=== PATIENT | female | born 1955 | race Asian ===

== ENCOUNTER → 2019-03-27 | Outpatient (REF) | payer MEDICARE ==
[2019-03-27 14:35] LABS: BASO # 0.1 10^3/uL (0.0-0.2); BASO % 1.2 % (0.0-1.0); EOS # 1.2 10^3/uL (0.0-0.50); EOS % 17.6 % (0.0-3.0); HEMATOCRIT 30.6 % (36.0-47.0); HEMOGLOBIN 9.6 g/dl (12.0-15.5); LYMPH # 0.7 10^3/uL (1.5-4.5); LYMPH % 11.2 % (24.0-44.0); MEAN CORPUSCULAR HEMOGLOBIN 28.4 pg (27.0-33.0); MEAN CORPUSCULAR HGB CONC 31.4 g/dl (32.0-36.5); MEAN CORPUSCULAR VOLUME 90.5 fl (80.0-96.0); MONO # 0.5 10^3/uL (0.0-0.8); MONO % 8.3 % (0.0-5.0); NEUTROPHILS % 61.4 % (36.0-66.0); PLATELET COUNT, AUTOMATED 270 10^3/uL (150-450); RED BLOOD COUNT 3.38 10^6/uL (4.00-5.40); WHITE BLOOD COUNT 6.5 10^3/uL (4.0-10.0)
== END ==
LOC: M LAB REF 14:25
PROVIDERS: ATTEND Internal Medicine Nephrology
DX: N18.5 Chronic kidney disease, stage 5 (principal); D63.1 Anemia in chronic kidney disease

== ENCOUNTER → 2019-04-01 | Outpatient (CLI) | payer MEDICARE ==
--- NOTE | 2019-04-01 10:04 | REP ---
Chest x-ray: Two views. History: Cough. Kidney transplant. Findings: There is moderate cardiomegaly. Cardiothoracic ratio is measured at 58.0%. The thoracic aorta is calcific and tortuous. Pulmonary vasculature is not increased. Pleural angles are sharp. There is no evidence of pulmonary edema or pleural effusion. No infiltrate is seen. Impression: Moderate cardiomegaly. Otherwise no acute disease. Electronically Signed by Robert An MD 04/01/2019 09:55 A
== END ==
LOC: M SMT 09:39
PROVIDERS: ATTEND Internal Medicine Nephrology
DX: I51.7 Cardiomegaly (principal); Z94.0 Kidney transplant status

== ENCOUNTER → 2019-04-29 | Outpatient (REF) | payer MEDICARE ==
[~2019-04-29] MED LIST: ACET-683 PO; CYCL25CA6 PO; FURO40TA2 PO; METO1TAB87 PO; MYCO250C PO; NORV5TAB PO; TESS100C PO; ULOR80TA PO; ZANTTAB PO
[2019-04-29 14:03] LABS: PERCENT SATURATION 58.6 % (13.2-45.0)
== END ==
LOC: M LAB REF 13:06
PROVIDERS: ATTEND Internal Medicine Nephrology
DX: Z94.0 Kidney transplant status (principal); N18.5 Chronic kidney disease, stage 5; D50.9 Iron deficiency anemia, unspecified

== ENCOUNTER 2019-04-30 10:09 | Outpatient (CLI) | payer MEDICARE ==
[~2019-04-30] VITALS: Ht 144.8 cm; Wt 49.3 kg
[2019-04-30 10:15] VITALS: BP 151/67
[2019-04-30] MEDS ORDERED: CYCL25CA6 PO (11:06)
[2019-04-30] MEDS ORDERED: ACET-683 PO (11:06)
[2019-04-30] MEDS ORDERED: ZANTTAB PO (11:06)
[2019-04-30] MEDS ORDERED: METO1TAB87 PO (11:06)
[2019-04-30] MEDS ORDERED: ULOR80TA PO (11:06)
[2019-04-30] MEDS ORDERED: FURO40TA2 PO (11:06)
[2019-04-30] MEDS ORDERED: TESS100C PO (11:06)
[2019-04-30] MEDS ORDERED: MYCO250C PO (11:06)
[2019-04-30] MEDS ORDERED: NORV5TAB PO (11:06)
[2019-04-30 15:25] VITALS: BP 148/73
== END 2019-04-30 15:25 | disposition home or self-care (01) ==
LOC: M INFU 10:09
PROVIDERS: ATTEND Internal Medicine Nephrology
DX: N18.5 Chronic kidney disease, stage 5 (principal); D63.1 Anemia in chronic kidney disease
CPT/HCPCS: 36430; P9016

== ENCOUNTER → 2019-07-10 | Outpatient (REF) | payer MEDICARE, MEDICAID ==
[~2019-07-10] MED LIST changes: +FEBU40TA4 PO; +MUCI600T31 PO; +PRED10PA PO; +ZANT150T40 PO; -ZANTTAB PO
== END ==
LOC: M LAB REF 13:03
PROVIDERS: ATTEND Internal Medicine Nephrology
DX: Z94.0 Kidney transplant status (principal)

== ENCOUNTER 2019-07-13 06:45 | Outpatient (CLI) | payer MEDICARE, MEDICAID ==
[~2019-07-13] VITALS: Ht 149.9 cm; Wt 50.1 kg
[2019-07-13] VITALS (9 sets, daily range): BP systolic 122–151; BP diastolic 59–67
[~2019-07-13 06:45] MED LIST changes: -MUCI600T31 PO
== END 2019-07-13 14:00 | disposition home or self-care (01) ==
LOC: M INFU 06:45
PROVIDERS: ATTEND Internal Medicine Nephrology
DX: N18.9 Chronic kidney disease, unspecified (principal); D63.1 Anemia in chronic kidney disease
CPT/HCPCS: 36415; 36430; 86850; 86900; 86901; 86920; P9016

== ENCOUNTER → 2019-07-20 | Outpatient (REF) | payer MEDICARE, MEDICAID ==
[~2019-07-20] MED LIST changes: +MUCI600T31 PO
[2019-07-20 14:39] LABS: HEPATITIS B CORE ANTIBODY IGM NEGATIVE (NEGATIVE); HEPATITIS B SURFACE ANTIBODY POSITIVE (POSITIVE); HEPATITIS B SURFACE ANTIGEN NEGATIVE (NEGATIVE)
== END ==
LOC: M LAB REF 12:59
PROVIDERS: ATTEND Internal Medicine Nephrology
DX: N18.6 End stage renal disease (principal); E78.49 Other hyperlipidemia; I12.0 Hypertensive chronic kidney disease with stage 5 chronic kidney disease or end stage renal disease; D64.9 Anemia, unspecified

== ENCOUNTER 2019-07-21 05:46 | Day surgery (SDC) | payer MEDICARE, MEDICAID ==
[~2019-07-21] VITALS: Ht 149.9 cm; Wt 49.8 kg
[~2019-07-21 05:46] MED LIST changes: -MUCI600T31 PO
[2019-07-21] MEDS ORDERED: MUCI600T31 PO (06:28)
[2019-07-21] MEDS ORDERED: D5W/0.2% SODIUM CHLORIDE 1,000 ML IV ONE (06:45)
[2019-07-21] MEDS ORDERED: BUPIVACAINE HCL 0.5% 10 ML VIAL As Ordered ONE (06:53)
[2019-07-21] MEDS ORDERED: HEPARIN SOD (PORCINE) 5000 UNITS/ML VIAL As Ordered ONE (06:53)
[2019-07-21] MEDS ORDERED: LIDOCAINE 2% MDV 20 ML VIAL As Ordered ONE (06:54)
[2019-07-21] MEDS ORDERED: LIDOCAINE 2% INJ 100 MG/5 ML SDV (FOR ANES.) As Ordered ONE (07:05)
[2019-07-21] MEDS ORDERED: ROCURONIUM BROMIDE 50 MG/5 ML VIAL As Ordered ONE (07:06)
[2019-07-21] MEDS ORDERED: PROPOFOL 200 MG/20 ML VIAL As Ordered ONE (07:06)
[2019-07-21] MEDS ORDERED: MIDAZOLAM INJ 2 MG/2 ML VIAL (J2250) As Ordered ONE (07:07)
[2019-07-21] MEDS ORDERED: fentaNYL 100 MCG/2 ML INJECTION (J3010) As Ordered ONE (07:07)
[2019-07-21] MEDS ORDERED: dexameTHASONE 4 MG/ML 1ML VIAL (J1100) As Ordered ONE (07:07)
[2019-07-21] MEDS ORDERED: ONDANSETRON 4MG/2ML VIAL (J2405) As Ordered ONE (07:08)
[2019-07-21] MEDS ORDERED: LIDOCAINE 1% MDV 20ML VIAL As Ordered ONE (07:27)
[2019-07-21] MEDS ORDERED: SUGAMMADEX SODIUM 500 MG/5 ML VIAL (BRIDION) As Ordered ONE (08:14)
[2019-07-21] MEDS ORDERED: ONDANSETRON 4MG/2ML VIAL (J2405) IV PRN ×2 (08:45→10:00)
[2019-07-21] MEDS ORDERED: HYDROMORPHONE HCL 0.5 MG/ 0.5 ML SYRINGE (J1170 PER 1) IV PRN ×2 (08:45→10:00)
[2019-07-21] MEDS ORDERED: fentaNYL 100 MCG/2 ML INJECTION (J3010) IV PRN ×2 (08:45→10:00)
[2019-07-21] MEDS ORDERED: PERCOCET 5MG/325MG TAB PO PRN ×2 (08:45→10:00)
--- NOTE | 2019-07-21 09:09 | ECGEPIP ---
[facility] Test Date: 2019-07-21 Pat Name: MILENA TRAYLOR Department: Room: - Gender: Female Contracts Administrator: VANNESSA : 1955 Requested By: TIFFANIE Han Order Number: [id number] Reading MD: Travon Ray Measurements Intervals [place] Rate: 71 P: 27 [place]: 152 QRS: 12 QRSD: 78 T: 62 QT: 367 QTc: 399 Interpretive Statements SINUS RHYTHM Comparison tracing not on file Electronically Signed on 07-21-2019 9:08:57 EDT by Travon Ray
--- NOTE | 2019-07-21 09:09 | ROOPDOC ---
[facility] Report Of Operation Report of Operation DATE OF SURGERY: 07/21/2019 PREOPERATIVE DIAGNOSES: Chronic renal insufficiency nearing end-stage renal disease requiring renal replacement therapy POSTOPERATIVE DIAGNOSES: Chronic renal insufficiency nearing end-stage renal disease requiring renal replacement therapy. PROCEDURE: Laparoscopic peritoneal exploration SURGEON: Dr. Madelin Morales MD WIRE ROPE FABRICATION SUPERVISOR: None INDICATION: Patient is a 63-year-old female with chronic renal insufficiency nearing end-stage renal disease who has previously required hemodialysis through a left arm autogenous arteriovenous fistula the patient had received a living- related renal transplant from her brother approximate 28 years ago and she has now approaching the need for recurrent renal replacement therapy. Patient wishes to undergo placement of a peritoneal dialysis catheter and proceed with peritoneal dialysis as her primary form of renal replacement therapy. Patient has had previous hysterectomy and renal transplantation abdominal surgeries. Patient had a left autogenous radiocephalic artery venous fistula which was re moved after her renal transplantation. Patient was also offered the option of undergoing creation of a and autogenous arteriovenous fistula which she does not wish to proceed with at this time. The procedure was described and explained to the patient in detail including drawing of pictures demonstrating the procedure and the anatomy. Risks, benefits and alternative treatment options were discussed with the patient and her daughter. Benefits included but were not limited to dialysis through a catheter in the abdomen and no need for hemodialysis. Alternative treatment options included but were not limited to no intervention with continued conservative management. Risks included but were not limited to infection, bleeding, intra-abdominal organ injury necessitating exploratory laparotomy with repair, possible need for further open surgical intervention, inability to place the peritoneal dialysis catheter secondary to adhesions, failure of peritoneal dialysis catheter to function requiring revision and/or removal, failure of peritoneal dialysis catheter to provide adequate dialysis requiring revision and/or removal of catheter, allergic and/or adverse reaction to the prepping and draping materials allergic and/or adverse reaction to the anesthesia, nerve injury, scarring, bruising, pain, cerebrovascular accident, myocardial infarction, pulmonary embolus, deep venous thrombosis, poor outcome and/or results, poor patient's satisfaction, loss of limb and loss of life. Risks of not performing the procedure included but were not limited to renal replacement therapy via other forms such as hemodialysis, requirement for a tunneled central venous catheter and/or arteriovenous fistula and The patient's questions were answered as well as all of her daughter's questions. The patient voices understanding of these risks benefits and alternative treatment options. The patient signed the written consent in the preoperative holding area prior to the surgery after all of her questions were answered as well as all of her daughter's questions. ANESTHESIA: Gen. endotracheal. IVF: 600 ESTIMATED BLOOD LOSS: 5 mL. HEPARIN: None PROTAMINE: None COMPLICATIONS: None. DRAINS: None SPECIMENS: None IMPLANTS: None FINDINGS: The intraperitoneal space was obliterated by adhesions with no open cavity for placement of a peritoneal dialysis catheter. DESCRIPTION OF PROCEDURE: Patient was taken to operating room, placed supine on the operating room table and the patient was prepped and draped in a standard surgical fashion. The surgical timeout was performed by myself and all team members in the room confirming the correct patient, laterality and procedure. A stab incision was made in the left upper quadrant after anesthetizing the overlying skin with 2 % lidocaine mixed with 0.5% Marcaine. A 5 mm port was then inserted through the stab incision into the peritoneal cavity with the laparoscope within the port using direct laparoscopic visualization to place the port within the peritoneal cavity. The abdominal cavity was insufflated with CO2. The laparoscope was inserted through the 5 mm port showing the intra- abdominal cavity to be full of adhesions. The peritoneal cavity was explored and the only open space was in the right upper quadrant near the liver which was easily visualized and noted to be normal. There were massive adhesions in the bilateral lower quadrants and no open space for placement of a peritoneal dialysis catheter. The was removed and the puncture wound were closed using 4-0 Monocryl suture in inverted interrupted fashion. Steri-Strips and dressings were applied. All instrument, sponge and needle counts were correct at the end of the case. There were no complications. Dr. Morales was present for and directed the entire case. Patient was transferred to the recovery room awake, alert, extubated and in stable condition. The results of the procedure were explained and described to the patient in the postoperative recovery area with all of her questions being answered. The results of the procedure were explained and de scribed to the patient's daughter in the post surgical waiting area with all of her questions being answered. CONCLUSION: Patient underwent attempted laparoscopic peritoneal dialysis catheter placement which was unsuccessful due to massive amount of adhesions preventing placement of the catheter as well as the likelihood that the catheter would be nonfunctional and in able to be used for peritoneal dialysis. PLAN: Patient will require autogenous arteriovenous fistula creation for renal replacement therapy via hemodialysis. Patient will undergo a vein mapping and this will be scheduled in the near future. Alexander Morales MD Jul 21, 2019 09:09
[2019-07-21 11:00] VITALS: BP 115/59
--- NOTE | 2019-07-21 15:35 | REP ---
Upper extremity vein mapping: Right upper extremity: Basilic size mm Cephalic size mm Upper humerus 2.8 1.2 Lower humerus 2.8 1.6 Upper forearm 1.7 0.9 Lower forearm/wrist. 1.1 1.1 Median cubital 1.9 -- Arterial PSV Waveform Size mm Axillary 92 triphasic 5.1 Brachial 82 triphasic 4.7 Radial 62 triphasic 2.4 Ulnar 50 triphasic 1.4 Upper extremity vein mapping: Left upper extremity: Basilic size mm Cephalic size mm Upper humerus 4.4 of 2.7 Lower humerus 4.4 of 2.5 Upper forearm 1.5 1.6 Lower forearm/wrist. 1.8 1.7 Median cubital 2.6 -- Arterial PSV Waveform Size mm Axillary 92 triphasic 5.2 Brachial 132 triphasic 4.1 Radial 60 triphasic 1.9 Ulnar 68 biphasic 1.1 The left radial artery is tortuous at the wrist. The left basilic vein travels to the lateral side of the wrist near the tortuous radial artery. This may be from a previous AVF. Electronically Signed by Bob Frazier MD 07/21/2019 03:27 P
== END 2019-07-21 12:55 | disposition home or self-care (01) ==
LOC: M SDC 05:46
PROVIDERS: ATTEND Surgery Vascular Surgery
DX: N18.6 End stage renal disease (principal); K66.0 Peritoneal adhesions (postprocedural) (postinfection); I12.0 Hypertensive chronic kidney disease with stage 5 chronic kidney disease or end stage renal disease; D63.1 Anemia in chronic kidney disease; M1A.30X0 Chronic gout due to renal impairment, unspecified site, without tophus (tophi); E78.5 Hyperlipidemia, unspecified; K21.9 Gastro-esophageal reflux disease without esophagitis; B00.1 Herpesviral vesicular dermatitis; R06.02 Shortness of breath; R05 Cough; Z91.010 Allergy to peanuts; Z79.899 Other long term (current) drug therapy; Z94.0 Kidney transplant status; Z90.710 Acquired absence of both cervix and uterus
CPT/HCPCS: 36415; 49320; 84132; 93005; G0365; J1100; J2250; J2405; J3010

== ENCOUNTER → 2019-08-06 | Outpatient (REF) | payer MEDICARE, MEDICAID ==
[~2019-08-06] MED LIST changes: +CLAR10CA3 PO; +MUCI600T31 PO
== END ==
LOC: M LAB REF 13:13
PROVIDERS: ATTEND Internal Medicine Nephrology
DX: D64.9 Anemia, unspecified (principal)

== ENCOUNTER 2019-08-07 12:15 | Outpatient (CLI) | payer MEDICARE, MEDICAID ==
[~2019-08-07] VITALS: Ht 149.9 cm; Wt 50.1 kg
[2019-08-07] VITALS (10 sets, daily range): BP systolic 136–149; BP diastolic 60–74
[~2019-08-07 12:15] MED LIST changes: -CLAR10CA3 PO
[2019-08-07] MEDS ORDERED: CLAR10CA3 PO ×2 (12:45)
== END 2019-08-07 17:25 | disposition home or self-care (01) ==
LOC: M INFU 12:15
PROVIDERS: ATTEND Internal Medicine Nephrology
DX: N18.9 Chronic kidney disease, unspecified (principal); D63.1 Anemia in chronic kidney disease
CPT/HCPCS: 36430; P9016

== ENCOUNTER 2019-08-30 13:34 | Inpatient (IN) | payer MEDICARE, MEDICAID ==
[~2019-08-30] VITALS: Ht 149.9 cm; Wt 46.9 kg
[~2019-08-30 13:34] MED LIST changes: +CLAR10CA3 PO
[2019-08-30] MEDS ORDERED: ACETAMINOPHEN 325 MG TAB PO ONE (14:00)
[2019-08-30] MEDS ORDERED: ALLO100T PO (14:10)
[2019-08-30 14:37] LABS: INFLUENZA A AMPLIFICATION NEGATIVE (NEGATIVE); INFLUENZA B AMPLIFICATION NEGATIVE (NEGATIVE)
[2019-08-30] MEDS ORDERED: ALBUTEROL SULFATE 2.5 MG/0.5 ML INH NEB SOLN NEB PRN (14:45)
[2019-08-30 15:09] LABS: BASO # 0.1 10^3/uL (0.0-0.2); BASO % 0.3 % (0.0-1.0); EOS # 0.2 10^3/uL (0.0-0.5); EOS % 0.8 % (0.0-3.0); HEMATOCRIT 24.6 % (36.0-47.0); HEMOGLOBIN 8.3 g/dl (12.0-15.5); LYMPH # 0.3 10^3/uL (1.5-5.0); LYMPH % 1.8 % (24.0-44.0); MEAN CORPUSCULAR HEMOGLOBIN 30.5 pg (27.0-33.0); MEAN CORPUSCULAR HGB CONC 33.7 g/dl (32.0-36.5); MEAN CORPUSCULAR VOLUME 90.4 fl (80.0-96.0); MONO % 5.4 % (0.0-5.0); NEUTROPHILS # 17.1 10^3/uL (1.5-8.5); NEUTROPHILS % 90.7 % (36.0-66.0); PLATELET COUNT, AUTOMATED 316 10^3/uL (150-450); RED BLOOD COUNT 2.72 10^6/uL (4.00-5.40); WHITE BLOOD COUNT 18.9 10^3/uL (4.0-10.0)
--- NOTE | 2019-08-30 15:13 | REP ---
CHEST, TWO VIEWS: Two views of the chest are performed and compared to prior study of 04/01/2019. There is cardiomegaly with vascular congestion. There appears to be diffuse interstitial edema. There is focal patchy infiltrate in the right lung base. There is calcification and tortuosity of the thoracic aorta. There are degenerative changes of the spine. IMPRESSION: Cardiomegaly, vascular congestion, and interstitial edema suggesting CHF. There is more focal infiltrate in the right lower lobe. Cannot exclude right lower lobe pneumonia. Electronically Signed by Bob Sears MD 08/30/2019 04:32 P
[2019-08-30 15:38] LABS: ALBUMIN 2.7 GM/DL (3.2-5.2); ALT/SGPT 30 U/L (12-78); BILIRUBIN,DIRECT 0.3 MG/DL (0.0-0.2); BILIRUBIN,TOTAL 0.5 MG/DL (0.2-1.0); BLOOD UREA NITROGEN 43 MG/DL (7-18); CALCIUM LEVEL 8.2 MG/DL (8.8-10.2); CARBON DIOXIDE LEVEL 14 MEQ/L (21-32); CHLORIDE LEVEL 111 MEQ/L (98-107); CK-MB VALUE MASS < 1.0 NG/ML (<3.6); CPK CREATINE PHOSPHOKINASE 31 U/L (26-192); CREATININE FOR GFR 3.52 MG/DL (0.55-1.30); GLOMERULAR FILTRATION RATE 13.9 (>45); GLUCOSE, FASTING 147 MG/DL (70-100); MB/CK RELATIVE INDEX 3.23 (< OR =4); POTASSIUM SERUM 4.3 MEQ/L (3.5-5.1); SODIUM LEVEL 138 MEQ/L (136-145); TOTAL PROTEIN 6.1 GM/DL (6.4-8.2)
[2019-08-30 15:39] LABS: TROPONIN I < 0.02 NG/ML (< 0.10)
[2019-08-30] MEDS ORDERED: RANI150T14 PO (15:40)
[2019-08-30] MEDS ORDERED: PRED5TA PO (15:40)
[2019-08-30] MEDS ORDERED: FURO40TA2 PO (15:45)
[2019-08-30] MEDS ORDERED: cefTRIAXone SOD 2 GM in D5W MINI-BAG PLUS 50 ML IV ONE (16:15)
[2019-08-30] MEDS ORDERED: FUROSEMIDE 20 MG/2 ML VIAL (J1940) IV ONE (16:30)
[2019-08-30 16:47] LABS: AMORPHOUS SEDIMENT LARGE (NEGATIVE); APPEARANCE, URINE CLOUDY (CLEAR); BACTERIA, URINE AUTO 1+ (NEGATIVE); BILIRUBIN, URINE AUTO NEGATIVE (NEGATIVE); BLOOD, URINE BLOOD 1+ (NEGATIVE); COLOR, URINE YELLOW (YELLOW); GLUCOSE, URINE (UA) AUTO 1+ mg/dL (NEGATIVE); KETONE, URINE AUTO NEGATIVE (NEGATIVE); LEUKOCYTE ESTERASE, URINE AUTO NEGATIVE (NEGATIVE); MUCUS, URINE SMALL (NEGATIVE); NITRITE, URINE AUTO NEGATIVE (NEGATIVE); PROTEIN, URINE AUTO 2+ mg/dL (NEGATIVE); RBC, URINE AUTO 4 /HPF (0-3); SPECIFIC GRAVITY URINE AUTO 1.011 (1.002-1.035); SQUAMOUS EPITHELIAL CELL UR AU 2 /HPF (0-6); UROBILINOGEN, URINE AUTO 0.2 mg/dL (0.0-2.0); WBC, URINE AUTO 4 /HPF (0-3)
[2019-08-30] MEDS ORDERED: ACETAMINOPHEN TAB 650MG DOSE (2X325MG) PO PRN (17:15)
[2019-08-30] MEDS ORDERED: LEVALBUTEROL 1.25 MG/0.5 ML CONCENTRATE NEB INH PRN (17:15)
[2019-08-30] MEDS ORDERED: FAMOTIDINE 20 MG TAB PO PRN (17:30)
--- NOTE | 2019-08-30 17:55 | HPEPDOC ---
General Date of Admission Aug 30, 2019 at 17:14 Date of Service: Aug 30, 2019 Chief Complaint The patient is a 63-year-old female Who presented to the emergency room with complaints of shortness of breath and productive cough. History of Present Illness Patient is a 63-year-old female with a PMHx of ESRD s/p Renal transplant (on immunosuppression), HTN, Gout and GERD who presented to the emergency room with worsening cough and shortness of breath over the last several weeks. Patient reports that she follows with Dr. Stovall on a regular basis. . She was last evaluated by them on 08/06/2019 and followed up with them on 08/07/2019 for 2 units PRBC transfusion for her anemia related to chronic kidney disease. Patient reports that over the last several weeks. Shes been expressing symptoms of an upper respiratory tract infection and has been noting increased weakness, lower energy levels and loss of sleep. . She reports that shes been experiencing worsening shortness of breath as well as a productive cough with white/yellow colored sputum. She denies any blood within the sputum. Patient does report pain around the lower part of her chest and both sides of her chest upon deep cough. Patient has reported subjective chills and fevers at home, however, she has not measured any temperatures. Patient denies nausea, vomiting, abdominal pain, constipation, diarrhea, or urinary discomfort. Patient does report that she urinates without any difficulty. She has reported a 4 pound weight loss over last 1 month and has reported poor appetite. Home Medications Scheduled Allopurinol (Allopurinol) 100 Mg Tablet, 100 MG PO DAILY, (Reported) Amlodipine Besylate (Norvasc) 5 Mg Tablet, 5 MG PO DAILY, (Reported) Cyclosporine, Modified (Cyclosporine Modified) 25 Mg Capsule, 50 MG PO BID, (Reported) Furosemide (Furosemide) 40 Mg Tablet, 40 MG PO DAILY, (Reported) Metoprolol Tartrate (Metoprolol Tartrate) 25 Mg Tablet, 25 MG PO BID, (Reported) Mycophenolate Mofetil (Mycophenolate Mofetil) 250 Mg Capsule, 500 MG PO BID, (Reported) Prednisone (Prednisone) 5 Mg Tablet, 5 MG PO DAILY, (Reported) Scheduled PRN Acetaminophen (Acetaminophen) 500 Mg Tablet, 1,000 MG PO BID PRN for PAIN, (Reported) Ranitidine HCl (Ranitidine HCl) 150 Mg Tablet, 300 MG PO DAILY PRN for HEARTBURN /INDIGESTION, (Reported) Allergies Coded Allergies: latex (Verified Allergy, Intermediate, rash, 07/21/19) Past Medical History Medical History ESRD s/p Renal transplant (on immunosuppression), HTN, Gout and GERD Surgical History Kidney transplant approximately 28 years ago; Hysterectomy with bilateral salpingo-oophorectomy Left arm AV fistula creation and reversal approximately 28 years ago Family History - Mother and father with a history of DM2 Social History - Denies the use of alcohol, tobacco or illicit drugs - Denies recent travel or sick contacts - Lives with daughter and son-in-law - Occupation; 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 There is no wheezing or rhonchi noted - Abdomen: Soft, Non-distended, Non-tender - Extremities: No lower extremity edema, No calf tenderness - Neuro: No focal motor or sensory deficit - Skin: No visible rashes Laboratory Data Labs 24H Laboratory Tests 2 08/30/19 13:59: Influenza Type A (RT-PCR) NEGATIVE, Influenza Type B (RT-PCR) NEGATIVE 08/30/19 14:50: 08/30/19 14:51: Immature Granulocyte % (Auto) 1.0, Neutrophils (%) (Auto) 90.7H, Lymphocytes (%) (Auto) 1.8L, Monocytes (%) (Auto) 5.4H, Eosinophils (%) (Auto) 0.8, Basophils (%) (Auto) 0.3, Neutrophils # (Auto) 17.1H, Lymphocytes # (Auto) 0.3L, Monocytes # (Auto) 1.0H, Eosinophils # (Auto) 0.2, Basophils # (Auto) 0.1, Nucleated Red Blood Cells % (auto) 0.0, Anion Gap 13, Glomerular Filtration Rate 13.9L, Lactic Acid Level 0.9, Calcium Level 8.2L, Total Bilirubin 0.5, Direct Bilirubin 0.3H, Aspartate Amino Transf (AST/SGOT) 18, Alanine Aminotransferase (ALT/SGPT) 30, Alkaline Phosphatase 88, Total Creatine Kinase 31, Creatine Kinase MB < 1.0, Creatine Kinase MB Relative Index 3.23, Troponin I < 0.02, AN-Dpb-P-Type N atriuretic Peptide 896H, Total Protein 6.1L, Albumin 2.7L, Albumin/Globulin Ratio 0.79L 08/30/19 16:26: Urine Color YELLOW, Urine Appearance CLOUDYH, Urine pH 5.0, Urine Specific [place] 1.011, Urine Protein 2+H, Urine Glucose (Auto)(UA) 1+H, Urine Ketones (Auto) NEGATIVE, Urine Blood 1+H, Urine Nitrite NEGATIVE, Urine Bilirubin NEGATIVE, Urine Urobilinogen 0.2, Urine Leukocyte Esterase (Auto) NEGATIVE, Urine WBC (Auto) 4H, Urine RBC (Auto) 4H, Urine Hyaline Casts (Auto) 0, Urine Bacteria (Auto) 1+H, Urine Squamous Epithelial Cells 2, Urine Amorphous Sediment (Auto) LARGEH, Urine Mucus (Auto) SMALL, Urine Sperm (Auto) CBC/BMP Laboratory Tests 08/30/19 14:51 Microbiology Microbiology 08/30/19 Blood Culture, Received Pending 08/30/19 Blood Culture, Received Pending Plan / VTE VTE Prophylaxis Ordered?: Yes Plan Plan Shortness of breath - likely 2/2 multifactorial etiology - Fluid overload - likely 2/2 progression of CKD / ESRD with failure of renal transplant - Patient reports that her symptoms have worsened over the last several days - Auscultation is reveal evidence of crackles bilaterally - BNP noted to be elevated - CXR 08/30: Cardiomegaly, vascular congestion, and interstitial edema suggesting CHF. There is more focal infiltrate in the right lower lobe. Cannot exclude right lower lobe pneumonia. - Will give furosemide 60 IV total - Case has been discussed with nephrology will be on consultation - Pneumonia - possibly 2/2 community acquired pneumonia (coverage for gram negative and atypical organisms) - Patient noted to have a fever in the ER at 101.6F - Leukocytosis noted with neutrophil predominance - Will check blood and sputum cultures, respiratory panel and strep / legionella antigens - Will provide coverage with ceftriaxone and azithromycin Non-anion gap acidosis - Likely secondary to progression of underlying Tala disease - Will start bicarbonate tablets Normocytic anemia - likely 2/2 AOCD from ESRD - Hg appears to be lower than baseline - Will continue to monitor hemoglobin counts and transfuse as needed ESRD - s/p Renal transplant - Patient is currently on immunosuppression. Well continue with her home medications - Patient is scheduled to receive a fistula placement with Dr. Dewitt on 09/10/2019 - Consulted Nephrology; appreciate their input HTN - BP appears well controlled - c/w amlodipine and metoprolol with holidng parameters Gout - c/w Allopurinol GERD - c/w Famotidien DVT prophylaxis - Will start Heparin RAVEN TIPTON MD Aug 30, 2019 17:55
[2019-08-30 18:25] VITALS: BP 114/57
[2019-08-30] MEDS ORDERED: SLF 3 ML SYR IV PRN (18:30)
[2019-08-30] MEDS ORDERED: FUROSEMIDE 40 MG/4 ML VIAL (J1940) IV ONE (19:00)
[2019-08-30 20:00] VITALS: BP 109/59
[2019-08-30] MEDS: AZITHROMYCIN INJ 500 MG, VIAL MATE ADAPTER 1 EACH in D5W 250 ML IV SCH (20:54)
[2019-08-30] MEDS: NEORAL 25 MG CAP (J7515) PO SCH (20:55)
[2019-08-30] MEDS: SODIUM BICARBONATE 325 MG TAB PO SCH (20:55)
[2019-08-30] MEDS: MYCOPHENOLATE MOFETIL 250 MG CAP (J7517) PO SCH (20:55)
[2019-08-30] MEDS: METOPROLOL TART 25 MG TABLET PO SCH (20:56)
[2019-08-30] MEDS: HEPARIN SOD (PORCINE) 5000 UNITS/ML VIAL SC SCH (22:04)
[2019-08-30] MEDS: SLF 3 ML SYR IV SCH (22:05)
[2019-08-30] MEDS: BENZONATATE 100 MG CAP PO SCH (22:05)
[2019-08-31] VITALS: BP 103/51
[2019-08-31 04:00] VITALS: BP 101/51
[2019-08-31 05:27] LABS: BASO # 0.1 10^3/uL (0.0-0.2); BASO % 0.3 % (0.0-1.0); EOS # 0.1 10^3/uL (0.0-0.5); EOS % 0.8 % (0.0-3.0); HEMATOCRIT 25.2 % (36.0-47.0); HEMOGLOBIN 8.2 g/dl (12.0-15.5); LYMPH # 0.7 10^3/uL (1.5-5.0); LYMPH % 4.8 % (24.0-44.0); MEAN CORPUSCULAR HEMOGLOBIN 30.3 pg (27.0-33.0); MEAN CORPUSCULAR HGB CONC 32.5 g/dl (32.0-36.5); MONO # 0.9 10^3/uL (0.0-0.8); MONO % 6.1 % (0.0-5.0); NEUTROPHILS # 13.4 10^3/uL (1.5-8.5); NEUTROPHILS % 87.1 % (36.0-66.0); PLATELET COUNT, AUTOMATED 292 10^3/uL (150-450); RED BLOOD COUNT 2.71 10^6/uL (4.00-5.40); WHITE BLOOD COUNT 15.4 10^3/uL (4.0-10.0)
[2019-08-31] MEDS: BENZONATATE 100 MG CAP PO SCH ×3 (05:49→20:27)
[2019-08-31] MEDS: HEPARIN SOD (PORCINE) 5000 UNITS/ML VIAL SC SCH ×3 (05:51→20:26)
[2019-08-31] MEDS: SLF 3 ML SYR IV SCH ×3 (05:53→20:27)
[2019-08-31 05:55] LABS: CALCIUM LEVEL 8.8 MG/DL (8.8-10.2); CREATININE FOR GFR 3.94 MG/DL (0.55-1.30); GLOMERULAR FILTRATION RATE 12.2 (>45); MAGNESIUM LEVEL 1.6 MG/DL (1.8-2.4); POTASSIUM SERUM 3.8 MEQ/L (3.5-5.1)
[2019-08-31 08:00] VITALS: BP 109/62
[2019-08-31] MEDS: METOPROLOL TART 25 MG TABLET PO SCH ×2 (09:00→20:27)
[2019-08-31] MEDS: amLODIPine 5 MG TAB PO SCH (09:00)
[2019-08-31] MEDS: NEORAL 25 MG CAP (J7515) PO SCH ×2 (09:32→20:26)
[2019-08-31] MEDS: MYCOPHENOLATE MOFETIL 250 MG CAP (J7517) PO SCH ×2 (09:32→20:26)
[2019-08-31] MEDS: ALLOPURINOL 100 MG TAB PO SCH (09:32)
[2019-08-31] MEDS: predniSONE 5 MG TAB PO SCH (09:32)
[2019-08-31] MEDS: SODIUM BICARBONATE 325 MG TAB PO SCH ×3 (09:33→20:26)
[2019-08-31] MEDS ORDERED: FUROSEMIDE 40 MG/4 ML VIAL (J1940) IV ONE (11:00)
--- NOTE | 2019-08-31 11:32 | IPNPDOC ---
Text Note Date of Service The patient was seen on 08/31/19. NOTE SUBJECTIVE: Ms. Thomas was seen at bedside this morning and stated no changes to her condition. She states her cough has improved since her admission yesterday. She says the improvement in her cough allowed her to sleep overnight which she hadn't been able to do since her cough worsened a few weeks ago. She also states that her appetite has improved. She says her hearing has degraded since her coughing was exacerbated a few weeks ago. She denies fevers/chills, headache, chest pain, abdominal pain, N/V. OBJECTIVE: Physical Exam General: Ms. Thomas is a 63 year old female who was sitting up in her bed picking her lunch options. In no apparent distress. HEENT: Atraumatic, PERRLA, EOMI. Hearing loss noted..Patient uses iphone with earbuds to hear Cardiovascular: Normal S1,S2. No murmurs, rubs, knocks noted. Respiratory: Persistent cough noted when asked in fully inspire. Rales noted on her R lower lung field. Remainder of lung sounds are nominal. Abdomen: No organomegaly, distension, bruits, bruising noted Extremities: No edema noted. Dry feet B/L. Good capillary refill. ASSESSMENT: Ms. Thomas presents with SOB, productive cough, fevers and chills, and 8lb weight loss of 8 month duration. CXR showed possible right lower lobe pneumonia prompting sputum and blood cultures and empiric certriaxone and azithromycin treatment. Fluid overload was another possibility due to ESRD s/p transplant in 1990 along with elevated BNP at 896 however patient does not appear fluid overloaded on exam. Her cough was managed with Benzonatate. PLAN: Shortness of breath - likely 2/2 multifactorial etiology: - Fluid overload - likely 2/2 progression of CKD/ESRD with failure of renal transplant - BNP 896 on admission - CXR 08/30: Cardiomegaly, vascular congestion, and interstitial edema suggesting CHF. There is more focal infiltrate in the right lower lobe. Cannot exclude right lower lobe pneumonia. - Furosemide 40 mg IV 1 time dose prescribed per Nephrology - Pneumonia - possibly 2/2 community acquired pneumonia (coverage for gram negative and atypical organisms) and failed outpatient oral treatment - Pt afebrile on exam - WBC count 15.4 (was 18.9 yesterday) - Blood and sputum cultures, respiratory panel and strep/legionella antigens ordered and pending - Influenza negative - Continue ceftriaxone and azithromycin - Xopenex and Acapella for pulmonary toilet Non-anion gap acidosis - Continue Bicarbonate tablets - CO2 now 15 (was 14) Normocytic anemia-likely 2/2 ESRD - Hg 8.2 (8.3 yesterday, 9.6 on 03/27) - Will continue to monitor hemoglobin counts and transfuse as needed ESRD - s/p Renal transplant in 1990 - Patient is currently on immunosuppression. Well continue with her home medications - Patient is scheduled to receive a fistula placement with Dr. Byrne on 09/10/2019 - Consulted Nephrology; appreciate their input HTN - appears well controlled - c/w amlodipine and metoprolol with holding parameters Gout - c/w Allopurinol GERD - c/w Famotidine DVT prophylaxis - Will start Heparin I saw and evaluated the patient. Discussed with resident and medical students and agree with resident's findings and plan as documented in the resident's note. VS,Fishbone, I+O VS, Fishbone, I+O Laboratory Tests 08/30/19 14:51 08/31/19 05:07 Vital Signs Date Time Temp Pulse Resp B/P (MAP) Pulse Ox O2 Delivery O2 Flow Rate FiO2 08/31/19 09:00 84 109/62 08/31/19 08:00 97.9 16 96 Room Air I&O- Last 24 Hours up to 6 AM 08/31/19 06:00 Intake Total 100 ml Output Total 875 ml Balance -775 ml CHERYL HOLDEN OMS-3 Aug 31, 2019 11:31 JOSTIN CRESPO MD Aug 31, 2019 13:13 AYAD LABOY MD Sep 01, 2019 08:08
[2019-08-31 12:00] VITALS: BP 118/60
[2019-08-31] MEDS ORDERED: MAG SULF 1GM/100ML (MAG RUN) 1 GM in IV 1 EA IV ONE (12:00)
[2019-08-31] MEDS: cefTRIAXone SOD 1 GM in D5W MINI-BAG PLUS 50 ML IV SCH (15:04)
[2019-08-31 16:00] VITALS: BP 119/63
[2019-08-31 20:00] VITALS: BP 119/68
--- NOTE | 2019-08-31 20:05 | ECGEPIP ---
[facility] - ED Test Date: 2019-08-30 Pat Name: MILENA TRAYLOR Department: Room: - Gender: Female Group Director Experience: TC : 1955 Requested By: CHUCK Barber PA-C Order Number: [id number] Reading MD: Jordan Kahn Measurements Intervals [place] Rate: 89 P: 27 [place]: 146 QRS: 24 QRSD: 81 T: 48 QT: 325 QTc: 397 Interpretive Statements SINUS RHYTHM NONSPECIFIC ST T WAVE CHANGES DELAYED R WAVE PROGRESSION BASELINE ARTIFACT MAY AFFECT READING BASELINE WANDERING MAY AFFECT READING CW 07/21/[address] T WAVE CHANGES Electronically Signed on 08-31-2019 20:04:50 EDT by Jordan Kahn
[2019-08-31] MEDS: AZITHROMYCIN INJ 500 MG, VIAL MATE ADAPTER 1 EACH in D5W 250 ML IV SCH (20:25)
--- NOTE | 2019-08-31 20:25 | CR ---
DATE OF CONSULTATION: 08/31/2019 NEPHROLOGY CONSULTATION REASON FOR CONSULTATION: Shortness of breath, acute renal failure, and kidney transplant. HISTORY OF PRESENT ILLNESS: Mrs. Thomas is a 63-year-old lady with known history of end-stage renal disease for which she underwent a kidney transplant about 20 years ago in the [facility]. Her kidney function has gradually deteriorated, and she recently moved from [place] to [facility], and I have seen her recently. Her kidney function is now felt to be at about stage V and preparation for dialysis was being made as an outpatient. An attempt was made for a peritoneal dialysis catheter placement, which was abandoned due to significant intraperitoneal adhesions. She is now waiting for an arteriovenous (AV) fistula creation. The patient also has a history of recurrent anemia requiring transfusions as she failed to respond to erythropoietin therapy. She has chronic cough but now she developed a fever and worsening shortness of breath due to which she presented to the emergency room yesterday afternoon and was found to have right lower lobe infiltrate. The patient was admitted and discussed with the admitting physician at the time of admission. PAST MEDICAL AND SURGICAL HISTORY: Significant for: 1. End-stage renal disease, status post living-related kidney transplant and approaching end-stage renal disease again. 2. Hypertension. 3. Gout. 4. History of anemia, requiring transfusions. 5. History of gastroesophageal reflux disease. Past surgical history is significant for kidney transplant, hysterectomy, left arm AV fistula creation and an unsuccessful attempt for peritoneal dialysis catheter placement. MEDICATIONS: Home medications include allopurinol 100 mg daily, amlodipine 5 mg daily, cyclosporin 50 mg twice a day, furosemide 40 mg daily, metoprolol 25 mg twice a day, mycophenolate 250 mg two tablets twice a day and prednisone 5 mg daily. ALLERGIES: She has allergy to LATEX. PERSONAL AND SOCIAL HISTORY: The patient denies any alcohol, drug or tobacco use. FAMILY HISTORY: There is a history of diabetes in the family but no history of end-stage renal disease. REVIEW OF SYSTEMS: The patient reports fever and worsening shortness of breath for a couple of days. Denies any headache. She has loss of hearing and has been using hearing aid. She denies any nosebleed or sore throat. Cardiovascular system is significant for progressive shortness of breath but no chest pain. She denies any leg edema. Respiratory system is significant for chronic cough and worsening shortness of breath. No history of hemoptysis. Gastrointestinal (GI) system is negative for vomiting or diarrhea. Genitourinary () system is negative for dysuria or hematuria. Endocrine system is significant for no history of diabetes or thyroid problems. Hematological system is significant for anemia requiring transfusions. She has resistance to erythropoietin. Psychosocial system negative for depression or anxiety. Skin is negative for rash or ulcers. PHYSICAL EXAMINATION: Temperature 97 degrees Fahrenheit, heart rate 84 per minute and respiratory rate 16 per minute. Blood pressure 109/62 mmHg and oxygen saturation 96% on room air. Her head is atraumatic. Face has slight Cushingoid features. There is no oral thrush or ulcers. Neck veins are difficult to be assessed. There is no thyroid enlargement and trachea is midline. Heart sounds are regular and there is no pericardial friction rub. Lungs with slightly diminished breath sounds and bibasilar rales. Abdomen: Soft and nontender and bowel sounds are normal. Transplant kidney is nontender. Extremities: Without any cyanosis or clubbing. Skin has no rash or ulcers. Neurologically, she is awake, alert and oriented times three. LABORATORY DATA: On admission, WBC count 18.9, hemoglobin 8.3 and hematocrit 24.6. Today, her WBC count is 15.4, hemoglobin 8.2 and hematocrit 25.2. Platelets 292. Sodium is 140, potassium 3.8, CO2 15, BUN 55 and creatinine 3.94. Glucose 88 and calcium 8.6. A BNP level was 896. Urinalysis with 2+ protein and 1+ glucose. 4 WBCs and 4 RBCs. Chest x-ray done on admission showed mild cardiomegaly and right lower lobe infiltrate. PROBLEM #1: Acute renal failure superimposed on chronic kidney disease. The patient has advanced chronic kidney disease even at baseline. She may have slight worsening of kidney function due to pneumonia. She is already being prepared for dialysis as an outpatient. At this point, does not seem to have any emergent indication for dialysis. PROBLEM #2: Shortness of breath. Most likely this is related to a combination of right lower lobe infiltrate and mild congestive heart failure. I would recommend diuresing her with Lasix 40 mg intravenously once a day as needed and monitor her kidney function closely. PROBLEM #3: Metabolic acidosis. This is a chronic issue, and she has been on oral sodium bicarbonate supplement, which should be continued and chemistry repeated again tomorrow. Should her acidosis and dyspnea not improve, then we can consider acute dialysis. PROBLEM #4: Pneumonia. The patient has right lower lobe infiltrate with fever and cough. She is being treated with azithromycin and ceftriaxone. PROBLEM #5: Anemia. This is a chronic issue and she has required transfusions frequently. At this point, there is no emergent indication for transfusion, and we will continue to monitor. She has previously not responded to erythropoietin; however, I have not tried it myself, while it was tried out of state by her prior dry cleaner hand. PROBLEM #6: Kidney transplant status. I would recommend to continue with her chronic immunosuppressive therapy as she is on minimal dose of cyclosporin and mycophenolate. I do not feel that we need to hold or cut down the dose of her immunosuppression in view of pneumonia. Thank you for involving me in the care of Ms. Thomas. I will follow her along with you.
[2019-08-31] MEDS ORDERED: ACETYLCYSTEINE 20% 4 ML VIAL (200MG/ML) PO SCH (21:00)
--- NOTE | 2019-08-31 23:48 | ECHO ---
DATE OF PROCEDURE: 08/31/2019 DATE OF : 1955 AGE: 63 REFERRING PROVIDER: Dr. Ally Aguilar PATIENT LOCATION: Room 3225 REASON FOR THE STUDY: Shortness of breath. 2D MEASUREMENTS: IVS: 0.8 cm LV: 4.6 cm LVPW: 0.9 cm LA: 2.9 cm Aorta: 3.0 cm IVC: 0.9 cm DOPPLER MEASUREMENTS: Peak velocity across the aortic valve: 1.3 meters per second Mitral E: 0.8, Mitral A: 1.1 with a ratio of 0.7 2D COMMENTS: 1. Normal left ventricular size, wall thickness, and normal global left ventricular systolic function. There was a hyperdynamic left ventricle with an estimated global left ventricular systolic ejection fraction of 70-75%. 2. Normal left atrium. Normal right atrium and right ventricle. 3. The atrial septum appeared to be normal without evidence of defect or shunt. 4. Normal aortic root. 5. Trace to small pericardial effusion noted in limited views, no evidence of cardiac tamponade. 6. Minimally calcified aortic valve with normal leaflet excursion. The mitral valve, the tricuspid valve, and the pulmonic valve appeared to be normal. The proximal pulmonary artery branches were not well visualized. 7. The inferior vena cava was normal in size, central venous pressure is most likely normal. DOPPLER: It detects trace aortic regurgitation, trace mitral regurgitation. Abnormal relaxation pattern was noted across the mitral valve leaflets as well as the mitral valve annulus consistent with features of grade 1 left ventricular diastolic dysfunction. IMPRESSION: 1. Normal global left ventricular systolic function with a hyperdynamic left ventricle. Estimated left ventricular ejection fraction (LVEF) is 70-75%. 2. There are some features of grade 1 left ventricular diastolic dysfunction manifested by abnormal relaxation. 3. Aortic valve sclerosis with trace aortic regurgitation but no aortic stenosis. 4. Trace mitral regurgitation. 5. Trace to small pericardial effusion noted in limited views, no evidence of cardiac tamponade.
[2019-09-01] VITALS (12 sets, daily range): BP systolic 118–148; BP diastolic 60–76
[2019-09-01] MEDS: SLF 3 ML SYR IV SCH ×3 (05:38→20:25)
[2019-09-01] MEDS: BENZONATATE 100 MG CAP PO SCH ×3 (05:38→20:25)
[2019-09-01] MEDS: HEPARIN SOD (PORCINE) 5000 UNITS/ML VIAL SC SCH ×3 (05:38→20:23)
[2019-09-01 06:04] LABS: BASO # 0.1 10^3/uL (0.0-0.2); BASO % 0.4 % (0.0-1.0); EOS # 0.3 10^3/uL (0.0-0.5); HEMATOCRIT 22.9 % (36.0-47.0); HEMOGLOBIN 7.7 g/dl (12.0-15.5); LYMPH # 1.1 10^3/uL (1.5-5.0); LYMPH % 8.4 % (24.0-44.0); MEAN CORPUSCULAR HEMOGLOBIN 29.7 pg (27.0-33.0); MEAN CORPUSCULAR HGB CONC 33.6 g/dl (32.0-36.5); MEAN CORPUSCULAR VOLUME 88.4 fl (80.0-96.0); MONO # 0.8 10^3/uL (0.0-0.8); MONO % 6.4 % (0.0-5.0); NEUTROPHILS # 10.4 10^3/uL (1.5-8.5); PLATELET COUNT, AUTOMATED 342 10^3/uL (150-450); RED BLOOD COUNT 2.59 10^6/uL (4.00-5.40); WHITE BLOOD COUNT 12.9 10^3/uL (4.0-10.0)
[2019-09-01 06:30] LABS: CALCIUM LEVEL 8.8 MG/DL (8.8-10.2); CREATININE FOR GFR 3.72 MG/DL (0.55-1.30); POTASSIUM SERUM 3.3 MEQ/L (3.5-5.1)
[2019-09-01] MEDS ORDERED: POTASSIUM CHLORIDE 10 MEQ SR TABLET PO ONE (08:00)
[2019-09-01] MEDS: amLODIPine 5 MG TAB PO SCH (09:12)
[2019-09-01] MEDS: SODIUM BICARBONATE 325 MG TAB PO SCH ×3 (09:12→20:23)
[2019-09-01] MEDS: METOPROLOL TART 25 MG TABLET PO SCH ×2 (09:13→20:25)
[2019-09-01] MEDS: ALLOPURINOL 100 MG TAB PO SCH (09:13)
[2019-09-01] MEDS: MYCOPHENOLATE MOFETIL 250 MG CAP (J7517) PO SCH ×2 (09:13→20:25)
[2019-09-01] MEDS: NEORAL 25 MG CAP (J7515) PO SCH ×2 (09:13→20:25)
[2019-09-01] MEDS: predniSONE 5 MG TAB PO SCH (09:14)
--- NOTE | 2019-09-01 13:10 | IPN ---
DATE: 09/01/2019 Mrs. Thomas was seen this morning on her bedside. She is feeling better and reports that her cough has improved. She did have some abdominal pain and diarrhea, which she relates to Acetylcysteine t that was given to her yesterday. She remains on ceftriaxone and azithromycin for her pneumonia. The patient denies any fever or chills. PHYSICAL EXAMINATION: Temperature 97.8 degrees Fahrenheit, heart rate 80 per minute and respiratory rate 18 per minute. Blood pressure 123/65 mmHg and oxygen saturation 97%. Head is atraumatic. She has no oral thrush or ulcers. Pupils equal and reactive to light and sclera is anicteric. Neck is supple and jugular venous distention (JVD) not abnormally elevated. Heart: Sounds are regular. Lungs: Sound clear to auscultation. Abdomen: Soft and nontender. Bowel sounds are normal. Extremities: Without any cyanosis or clubbing. Skin has no rash or ulcers. Neurologically, she is awake, alert and at her baseline mentation. Today's labs show WBC count 12.9, hemoglobin 7.7 and hematocrit 22.9. Platelets 342. Sodium 141, potassium 3.3, CO2 20, BUN 55 and creatinine 3.72. Glucose 88 and calcium 8.8. PROBLEMS: 1. Acute renal failure superimposed on chronic kidney disease. Slight improvement in kidney function is noticed. The patient has no uremic symptoms at this point and there is no emergent indication for dialysis. 2. Metabolic acidosis. Her acidosis has improved with oral sodium bicarbonate supplement, which will be continued. 3. Hypokalemia related to diuretic use. She has already received a dose of 40 mEq of potassium chloride this morning. We will need to recheck her electrolytes again tomorrow and consider further supplementation if needed. She will need to stay on daily dose of Lasix in order to prevent hypervolemia again. 4. Anemia. The patient has known history of chronic anemia with resistance to erythropoietin. She is going to receive transfusion of 2 units of packed red blood cells. Aranesp has been used in the past without any significant improvement, and I am going to give her another trial of Aranesp 100 mcg one dose to be given. 5. Cough and pneumonia. The patient has improved symptoms and she remains on antibiotics, including ceftriaxone and azithromycin. 6. Kidney transplant status. The patient will continue with current immunosuppressive therapy and no changes are being made today. MTDD
[2019-09-01] MEDS: LEVALBUTEROL 1.25 MG/0.5 ML CONCENTRATE NEB INH SCH ×3 (13:34→19:36)
--- NOTE | 2019-09-01 14:50 | IPNPDOC ---
Text Note Date of Service The patient was seen on 09/01/19. NOTE Ms. Thomas was seen this morning and reported a improvement in her cough. She states that she wants her Albuterol/Ipratropium treatment scheduled instead of PRN. She admits to two semi-loose stools overnight. She denies headaches, sore throat, fevers, chills, nausea or vomiting, abdominal pain. She reports no further diarrhea so far today. OBJECTIVE: Physical Exam General: Ms. Thomas is a 63 year old female who was laying in her bed in no apparent distress. HEENT: Atraumatic, PERRLA, EOMI. Hearing loss noted..Patient uses iphone with earbuds to hear Cardiovascular: Normal S1,S2. No murmurs, rubs, knocks noted. Respiratory: Slight cough noted when asked in fully inspire. Remainder of lung exam normal Abdomen: No organomegaly, distension, bruits, bruising noted Extremities: No edema noted. Dry feet B/L. Good capillary refill. ASSESSMENT: Ms. Thomas presents with SOB, productive cough, fevers and chills, and 8lb weight loss of 8 month duration. CXR showed possible right lower lobe pneumonia prompting sputum and blood cultures and empiric ceftriaxone and azithromycin treatment. Fluid overload was another possibility due to ESRD s/p transplant in 1990 along with elevated BNP at 896 however patient does not appear fluid overloaded on exam. Her cough was managed with Benzonatate. She also received albuterol nebulizer treatments. During her stay she was noted to be anemic and required 2 units of pRBCs. So also required potassium repletion. PLAN: Shortness of breath - likely 2/2 multifactorial etiology: - Fluid overload - likely 2/2 progression of CKD/ESRD - BNP 896 on admission - CXR 08/30: Cardiomegaly, vascular congestion, and interstitial edema suggesting CHF. There is more focal infiltrate in the right lower lobe. Cannot exclude right lower lobe pneumonia. - Furosemide 40 mg IV 1 time dose prescribed due to today's pRBC transfusion - Pneumonia - possibly 2/2 community acquired pneumonia (coverage for gram negative and atypical organisms) and failed outpatient oral treatment - Pt afebrile on exam - WBC count trending down, currently 12.9 (was yesterday) - Blood and sputum cultures, respiratory panel and strep/legionella antigens ordered and pending - Influenza negative - Continue ceftriaxone and azithromycin - Xopenex and Acapella for pulmonary toilet Non-anion gap acidosis - Continue Bicarbonate tablets - CO2 now 20 (was 14 on admission) Normocytic anemia-likely 2/2 ESRD - Hg 8.2 (8.3 yesterday, 9.6 on 03/27) - Will continue to monitor hemoglobin counts and transfuse as needed -Per Nephrology, Aranesp 100 mg 1 time dose will be given tomorrow. ESRD - s/p Renal transplant in 1990 - Patient is currently on immunosuppression. Well continue with her home medications - Patient is scheduled to receive a fistula placement with Dr. Byrne on 09/10/2019 - Consulted Nephrology; appreciate their input HTN - appears well controlled - c/w amlodipine and metoprolol with holding parameters Gout - c/w Allopurinol GERD - c/w Famotidine DVT prophylaxis - Will start Heparin I saw and evaluated the patient. I agree with the findings and plan of care as documented in the above note VSEduarda, I+O VSEduarda, I+O Laboratory Tests 09/01/19 05:32 Vital Signs Date Time Temp Pulse Resp B/P (MAP) Pulse Ox O2 Delivery O2 Flow Rate FiO2 09/01/19 14:03 97.9 81 16 132/71 98 Room Air I&O- Last 24 Hours up to 6 AM 09/01/19 06:00 Intake Total 1375 ml Output Total 1850 ml Balance -475 ml CHERYL HOLDEN OMS-3 Sep 01, 2019 14:50 JOSTIN CRESPO MD Sep 01, 2019 18:22 KATE TRINIDAD MD Sep 02, 2019 12:34
[2019-09-01] MEDS: cefTRIAXone SOD 1 GM in D5W MINI-BAG PLUS 50 ML IV SCH (15:28)
[2019-09-01 16:56] LABS: HEMATOCRIT 36.4 % (36.0-47.0); HEMOGLOBIN 12.4 g/dl (12.0-15.5)
[2019-09-01] MEDS ORDERED: FUROSEMIDE 40 MG/4 ML VIAL (J1940) IV ONE (17:00)
[2019-09-01] MEDS: AZITHROMYCIN INJ 500 MG, VIAL MATE ADAPTER 1 EACH in D5W 250 ML IV SCH (20:23)
[2019-09-02] VITALS: BP 109/58
[2019-09-02 04:00] VITALS: BP 126/61
[2019-09-02 05:27] LABS: BASO # 0.1 10^3/uL (0.0-0.2); BASO % 0.6 % (0.0-1.0); EOS # 0.1 10^3/uL (0.0-0.5); HEMOGLOBIN 11.2 g/dl (12.0-15.5); LYMPH # 1.1 10^3/uL (1.5-5.0); MEAN CORPUSCULAR VOLUME 88.6 fl (80.0-96.0); MONO # 0.8 10^3/uL (0.0-0.8); MONO % 7.6 % (0.0-5.0); NEUTROPHILS # 8.2 10^3/uL (1.5-8.5); NEUTROPHILS % 76.8 % (36.0-66.0); PLATELET COUNT, AUTOMATED 317 10^3/uL (150-450); RED BLOOD COUNT 3.61 10^6/uL (4.00-5.40); WHITE BLOOD COUNT 10.6 10^3/uL (4.0-10.0)
[2019-09-02] MEDS: HEPARIN SOD (PORCINE) 5000 UNITS/ML VIAL SC SCH (05:37)
[2019-09-02] MEDS: BENZONATATE 100 MG CAP PO SCH (05:37)
[2019-09-02] MEDS: SLF 3 ML SYR IV SCH (05:37)
[2019-09-02 05:46] LABS: CALCIUM LEVEL 9.1 MG/DL (8.8-10.2); CREATININE FOR GFR 3.68 MG/DL (0.55-1.30); GLOMERULAR FILTRATION RATE 13.2 (>45); MAGNESIUM LEVEL 1.6 MG/DL (1.8-2.4); POTASSIUM SERUM 3.6 MEQ/L (3.5-5.1)
[2019-09-02] MEDS: LEVALBUTEROL 1.25 MG/0.5 ML CONCENTRATE NEB INH SCH (07:19)
[2019-09-02] MEDS ORDERED: MAG SULF 1GM/100ML (MAG RUN) 1 GM in IV 1 EA IV ONE (07:45)
[2019-09-02 07:56] VITALS: BP 159/78
[2019-09-02] MEDS ORDERED: DARBEPOETIN 100 MCG/0.5 ML *NON-DIALYSIS* SYRINGE (J0881) SC SCH (09:00)
[2019-09-02] MEDS: MYCOPHENOLATE MOFETIL 250 MG CAP (J7517) PO SCH (09:23)
[2019-09-02] MEDS: SODIUM BICARBONATE 325 MG TAB PO SCH (09:23)
--- NOTE | 2019-09-02 09:23 | IPNPDOC ---
Text Note Date of Service The patient was seen on 09/02/19. NOTE Follow seen at bedside this morning and reported last night after dinner she began consistently coughing but that she slept well and has not experienced cough this morning. She does state that she has consistently experienced more coughing at night. She also mentions that her cough worsens when she lies flat on her bed. She reports a yellowish tension her sputum which is consistent with her previous experience. Unsure of her DuoNeb treatments are helping her. Currently she states she feels better than prior to admission, but wants another day to hopefully help her cough resolved. She denies headache, chest pain, fevers or chills, abdominal pain, nausea, vomiting. OBJECTIVE: Physical Exam General: Ms. Thomas is a 63 year old female who was laying in her bed in no apparent distress. HEENT: Atraumatic, PERRLA, EOMI. Hearing loss noted..Patient uses iphone with earbuds to hear Cardiovascular: Normal S1,S2. No murmurs, rubs, knocks noted. Respiratory: Cough noted when asked in fully inspire. Remainder of lung exam normal Abdomen: No organomegaly, distension, bruits, bruising noted Extremities: No edema noted. Dry feet B/L. Good capillary refill. ASSESSMENT: Ms. Thomas presents with SOB, productive cough, fevers and chills, and 8lb weight loss of 8 month duration. CXR showed possible right lower lobe pneumonia prompting sputum and blood cultures and empiric ceftriaxone and azithromycin treatment. Fluid overload was another possibility due to ESRD s/p transplant in 1990 along with elevated BNP at 896 however patient does not appear fluid overloaded on exam. Her cough was managed with Benzonatate. She also received albuterol nebulizer treatments. During her stay she was noted to be anemic and required 2 units of pRBCs. She also required potassium repletion. PLAN: Shortness of breath - likely 2/2 multifactorial etiology: - Fluid overload - likely 2/2 progression of CKD/ESRD - BNP 896 on admission - CXR 08/30: Cardiomegaly, vascular congestion, and interstitial edema suggesting CHF. There is more focal infiltrate in the right lower lobe. Cannot exclude right lower lobe pneumonia. - Pneumonia - possibly 2/2 community acquired pneumonia (coverage for gram negative and atypical organisms) and failed outpatient oral treatment - Pt afebrile on exam - WBC count trending down, currently 10.6 (was 12.9 yesterday) - Sputum cultures, respiratory panel and strep/legionella antigens ordered and pending - Influenza negative - Continue ceftriaxone and azithromycin - Xopenex and Acapella for pulmonary toilet Non-anion gap acidosis - Continue Bicarbonate tablets - CO2 now 22 (was 14 on admission) Normocytic anemia-likely 2/2 ESRD - 2 units pRBCs and Aranesp 100 mg given yesterday -Hbg 11.2, HCT 32.0 today - Will continue to monitor hemoglobin counts and transfuse as needed ESRD - s/p Renal transplant in 1990 - Patient is currently on immunosuppression. Well continue with her home medications - Patient is scheduled to receive a fistula placement with Dr. Byrne on 09/10/2019 - Consulted Nephrology; appreciate their input HTN - appears well controlled - c/w amlodipine and metoprolol with holding parameters Gout - c/w Allopurinol GERD - c/w Famotidine DVT prophylaxis - Will start Heparin Disposition: Pt will require placement due to family I saw and evaluated the patient. I agree with the findings and plan of care as documented in the above note VS,Mehrdade, I+O VS, Mehrdade, I+O Laboratory Tests 09/01/19 16:24 09/02/19 05:14 Vital Signs Date Time Temp Pulse Resp B/P (MAP) Pulse Ox O2 Delivery O2 Flow Rate FiO2 09/02/19 07:56 97.5 84 18 159/78 (105) 99 Room Air I&O- Last 24 Hours up to 6 AM 09/02/19 06:00 Intake Total 1695 ml Output Total 1150 ml Balance 545 ml CHERYL HOLDEN OMS-3 Sep 02, 2019 09:23 KATE TRINIDAD MD Sep 02, 2019 12:38
[2019-09-02 09:24] VITALS: BP 159/78
[2019-09-02] MEDS: predniSONE 5 MG TAB PO SCH (09:24)
[2019-09-02] MEDS: ALLOPURINOL 100 MG TAB PO SCH (09:24)
[2019-09-02] MEDS: METOPROLOL TART 25 MG TABLET PO SCH (09:24)
[2019-09-02] MEDS: amLODIPine 5 MG TAB PO SCH (09:24)
[2019-09-02] MEDS: NEORAL 25 MG CAP (J7515) PO SCH (09:24)
[2019-09-02] MEDS ORDERED: LEVA750T7 PO (10:08)
[2019-09-02] MEDS ORDERED: LEVA12INH INH (10:13)
[2019-09-02] MEDS ORDERED: SODI325T9 PO (10:19)
--- NOTE | 2019-09-02 11:47 | DS.PDOC ---
Discharge Summary General Date of Admission Aug 30, 2019 at 17:14 Date of Discharge 09/02/2019 Discharge Summary PROCEDURES PERFORMED DURING STAY: None. 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 HISTORY OF PRESENT ILLNESS: Patient is a 63-year-old female with a PMHx of ESRD s/p Renal transplant (on immunosuppression), HTN, Gout and GERD who presented to the emergency room with worsening cough and shortness of breath over the last several weeks.Patient reports that she follows with Dr. Stovall on a regular basis. . She was last evaluated by them on 08/06/2019 and followed up with them on 08/07/2019 for 2 units PRBC transfusion for her anemia related to chronic kidney disease. Patient reports that over the last several weeks. Shes been expressing symptoms of an upper respiratory tract infection and has been noting increased weakness, lower energy levels and loss of sleep. She reports that shes been experiencing worsening shortness of breath as well as a productive cough with white/yellow colored sputum. She denies any blood within the sputum. Patient does report pain around the lower part of her chest and both sides of her chest upon deep cough. Patient has reported subjective chills and fevers at home, however, she has not measured any temperatures. Patient denies nausea, vomiting, abdominal pain, constipation, diarrhea, or urinary discomfort. Patient does report that she urinates without any difficulty.She has reported a 4 pound weight loss over last 1 month and has reported poor appetite. HOSPITAL COURSE: Ms. Thomas presents with SOB, productive cough, fevers and chills, and 8lb weight loss of 8 month duration. CXR showed possible right lower lobe pneumonia prompting sputum and blood cultures and empiric ceftriaxone and a zithromycin treatment. Fluid overload was another possibility due to ESRD s/p transplant in 1990 along with elevated BNP at 896 however patient does not appear fluid overloaded on exam. Her cough was managed with Benzonatate and acapella. She also received albuterol nebulizer treatments. During her stay she was noted to be anemic and required 2 units of pRBCs and 100 mg Aranesp. She also required potassium and magnesium repletion. Her cough improved during her stay and her WBC count trended down during her treatment. Her immunosuppression treatment was continued during her stay. DISCHARGE MEDICATIONS: Please see below. ALLERGIES: Please see below. PHYSICAL EXAMINATION ON DISCHARGE: VITAL SIGNS: Please see below. General: Ms. Thomas is a 63 year old female who was laying in her bed in no apparent distress. HEENT: Atraumatic, PERRLA, EOMI. Hearing loss noted..Patient uses iphone with earbuds to hear Cardiovascular: Normal S1,S2. No murmurs, rubs, knocks noted. Respiratory: Cough noted when asked in fully inspire. Remainder of lung exam normal Abdomen: No organomegaly, distension, bruits, bruising noted Extremities: No edema noted. Dry feet B/L. Good capillary refill. Psych: Well mannered and cooperative. Patient was anxious about being discharged while her living situation is not settled. LABORATORY DATA: Please see below. IMAGING: CXR (08/30/2019): Cardiomegaly, vascular congestion, and interstitial edema suggesting CHF. There is more focal infiltrate in the right lower lobe. Cannot exclude right lower lobe pneumonia. PROGNOSIS: fair ACTIVITY: As tolerated. DIET: Renal Diet DISCHARGE PLAN: Take medications as prescribed. Follow up with nephrology within 7 days. DISCHARGE CONDITION: Stable. I saw and evaluated the patient. I agree with the findings and plan of care as documented in the documenters note. I spent 45 minutes coordinating this patient's discharge. Vital Signs/I&Os Vital Signs Date Time Temp Pulse Resp B/P (MAP) Pulse Ox O2 Delivery O2 Flow Rate FiO2 09/02/19 09:24 84 159/78 09/02/19 07:56 97.5 18 99 Room Air I&O- Last 24 Hours up to 6 AM 09/02/19 06:00 Intake Total 1695 ml Output Total 1150 ml Balance 545 ml Laboratory Data Labs 24H Laboratory Tests 2 09/02/19 05:14: Immature Granulocyte % (Auto) 4.0H, Neutrophils (%) (Auto) 76.8H, Lymphocytes (%) (Auto) 10.0L, Monocytes (%) (Auto) 7.6H, Eosinophils (%) (Auto) 1.0, Basophils (%) (Auto) 0.6, Neutrophils # (Auto) 8.2, Lymphocytes # (Auto) 1.1L, Monocytes # (Auto) 0.8, Eosinophils # (Auto) 0.1, Basophils # (Auto) 0.1, Nucleated Red Blood Cells % (auto) 0.0, Anion Gap 8, Glomerular Filtration Rate 13.2L, Calcium Level 9.1, Magnesium Level 1.6L CBC/BMP Laboratory Tests 09/01/19 16:24 09/02/19 05:14 Microbiology Microbiology 08/30/19 Gram Stain - Final, Complete 08/30/19 Sputum Culture - Final, Complete Pseudomonas Aeruginosa 08/30/19 Respiratory Virus Panel (PCR) ([facility]) - Final, Complete 08/30/19 Blood Culture - Preliminary, Resulted No Growth after 48 hours. All Specime... 08/30/19 Blood Culture - Preliminary, Resulted No Growth after 48 hours. All Specime... Discharge Medications Scheduled Allopurinol (Allopurinol) 100 Mg Tablet, 100 MG PO DAILY, (Reported) Amlodipine Besylate (Norvasc) 5 Mg Tablet, 5 MG PO DAILY, (Reported) Cyclosporine, Modified (Cyclosporine Modified) 25 Mg Capsule, 50 MG PO BID, (Reported) Furosemide (Furosemide) 40 Mg Tablet, 40 MG PO DAILY, (Reported) Levalbuterol Hydrochloride (Xopenex Concentrate) 1.25 Mg/0.5 Ml Vial.neb, 0.31 MG INH RQID Levofloxacin (Levaquin) 750 Mg Tablet, 750 MG PO DAILY 750mg x 1 day, then 500mg q48h for 5 days Metoprolol Tartrate (Metoprolol Tartrate) 25 Mg Tablet, 25 MG PO BID, (Reported) Mycophenolate Mofetil (Mycophenolate Mofetil) 250 Mg Capsule, 500 MG PO BID, (Reported) Prednisone (Prednisone) 5 Mg Tablet, 5 MG PO DAILY, (Reported) Sodium Bicarbonate (Sodium Bicarbonate) 325 Mg Tablet, 650 MG PO BID Scheduled PRN Acetaminophen (Acetaminophen) 500 Mg Tablet, 1,000 MG PO BID PRN for PAIN, (Reported) Ranitidine HCl (Ranitidine HCl) 150 Mg Tablet, 300 MG PO DAILY PRN for HEARTBURN/INDIGESTION, (Reported) Allergies Coded Allergies: latex (Verified Allergy, Intermediate, rash, 07/21/19) CHERYL HOLDEN-3 Sep 02, 2019 10:33 KATE TRINIDAD MD Sep 02, 2019 12:40
--- NOTE | 2019-09-02 12:45 | IPN ---
DATE: 09/02/2019 Mrs. Thomas is seen this morning on her bedside. She reports some cough last night after dinner, however this morning she is feeling better. She has no fever or chills. She denies any fever or chills. She denies any nausea or vomiting. PHYSICAL EXAMINATION: Temperature 97.5 degrees Fahrenheit, heart rate 84 per minute and respiratory rate 18 per minute. Blood pressure 159/78 mmHg and oxygen saturation 99% on room air. Head is atraumatic. Neck is supple and without jugular venous distention (JVD) or thyroid enlargement. Lungs have scattered rhonchi at the bases. Heart sounds are regular and without pericardial friction rub. Abdomen is soft and nontender. Bowel sounds are normal. Extremities have no cyanosis or clubbing. Neurologically, she is awake, alert and at her baseline mentation without any focal deficits. Today's labs show WBC count 10.6, hemoglobin 11.2 and hematocrit 32.0. Platelets 317. Sodium 143, potassium 3.6, BUN 60 and creatinine 3.68. Sputum culture has come back positive for Pseudomonas, which is sensitive to everything. PROBLEMS: 1. Acute kidney injury superimposed on chronic kidney disease. She had mild acute kidney injury related to pneumonia, which as already improved and this is about her baseline kidney function. At this point, there is no emergent indication for starting dialysis and we will wait until the patient gets her AV fistula created in the next few weeks. 2. Pneumonia. The patient is clinically improving and is afebrile. Her leukocytosis is also improved. Her sputum culture came back positive for Pseudomonas. The patient remains on intravenous antibiotics including ceftriaxone and azithromycin. 3. Kidney transplant status. Kidney function is stable at present and she will continue with chronic immunosuppressive therapy. 4. Anemia. The patient was transfused yesterday and her anemia has improved. We also gave her a dose of Aranesp 100 mcg today. 5. Hypokalemia. Her potassium level has improved with supplement and we will continue with daily potassium supplements for now. 6. Metabolic acidosis. Acidosis is also corrected with oral sodium bicarbonate, which will be continued, even on discharge. 7. Hypomagnesemia. The patient received IV magnesium sulfate 1 gram. DISPOSITION: The patient wishes to go home tomorrow and wants to wait and see how she feels. I conveyed this to the hospitalist service.
[2019-09-03 00:06] LABS: BODY FLUID CULTURE Not Indicated (.); LEGIONELLA ANTIGEN URINE Negative (Negative); ORGANISM ID Not indicated. (.); SPECIMEN SOURCE Urine (.); URINE STREP PNEUMONIAE ANTIGEN Negative (Negative)
== END 2019-09-02 12:20 | disposition home health service (06) | DRG 193 ==
LOC: M ED 13:34 → M ED INP 17:14 → M PCU 18:25
PROVIDERS: ADMIT Internal Medicine; ATTEND Internal Medicine
PROC: 30233N1 Transfusion of Nonautologous Red Blood Cells into Peripheral Vein, Percutaneous Approach (ICD-10-PCS; principal; 2019-09-01)
DX: J18.1 Lobar pneumonia, unspecified organism (principal); N18.6 End stage renal disease; I12.0 Hypertensive chronic kidney disease with stage 5 chronic kidney disease or end stage renal disease; Z94.0 Kidney transplant status; E87.2 Acidosis; N17.9 Acute kidney failure, unspecified; E83.42 Hypomagnesemia; D63.1 Anemia in chronic kidney disease; M10.9 Gout, unspecified; K21.9 Gastro-esophageal reflux disease without esophagitis; Z91.040 Latex allergy status; Z79.52 Long term (current) use of systemic steroids; Z79.899 Other long term (current) drug therapy

== ENCOUNTER → 2019-10-08 | Outpatient (REF) | payer MEDICARE, MEDICAID ==
[~2019-10-08] MED LIST changes: +ALLO100T PO; +LEVA12INH INH; +LEVA750T7 PO; +OXYC1TAB23 PO; +PRED5TA PO; +RANI150T14 PO; +SODI325T9 PO
== END ==
LOC: M LAB REF 13:54
PROVIDERS: ATTEND Internal Medicine Nephrology
DX: D64.9 Anemia, unspecified (principal)

== ENCOUNTER 2019-10-09 09:06 | Outpatient (CLI) | payer MEDICARE, MEDICAID ==
[~2019-10-09] VITALS: Ht 149.9 cm; Wt 49.0 kg
[~2019-10-09 09:06] MED LIST changes: -OXYC1TAB23 PO
[2019-10-09 09:08] VITALS: BP 146/60
[2019-10-09 09:38] VITALS: BP 146/60
[2019-10-09 10:00] VITALS: BP 146/70
[2019-10-09 11:00] VITALS: BP 153/69
[2019-10-09 11:30] VITALS: BP 143/66
[2019-10-09 12:10] VITALS: BP 146/60
== END 2019-10-09 12:10 | disposition home or self-care (01) ==
LOC: M INFU 09:06
PROVIDERS: ATTEND Internal Medicine Nephrology
DX: D64.9 Anemia, unspecified (principal)
CPT/HCPCS: 36430; P9016

== ENCOUNTER → 2019-10-09 | Outpatient (CLI) | payer MEDICARE, MEDICAID | LOC: M INFU 09:04 | PROVIDERS: ATTEND Internal Medicine Nephrology | DX: D64.9 Anemia, unspecified (principal) ==

== ENCOUNTER 2019-10-13 11:50 | Day surgery (SDC) | payer MEDICARE, MEDICAID ==
[~2019-10-13] VITALS: Ht 149.9 cm; Wt 48.7 kg
[2019-10-13] MEDS ORDERED: LIDOCAINE 1% MDV 20ML VIAL ONE (11:51)
[2019-10-13 12:31] LABS: HEMATOCRIT 33.4 % (36.0-47.0); HEMOGLOBIN 10.6 g/dl (12.0-15.5); MEAN CORPUSCULAR HGB CONC 31.7 g/dl (32.0-36.5); MEAN CORPUSCULAR VOLUME 91.5 fl (80.0-96.0); PLATELET COUNT, AUTOMATED 236 10^3/uL (150-450); RED BLOOD COUNT 3.65 10^6/uL (4.00-5.40); WHITE BLOOD COUNT 7.7 10^3/uL (4.0-10.0)
[2019-10-13] MEDS ORDERED: NS 1,000 ML IV SCH (13:30)
[2019-10-13] MEDS ORDERED: MIDAZOLAM INJ 2 MG/2 ML VIAL (J2250) As Ordered ONE ×2 (14:25→14:36)
[2019-10-13] MEDS ORDERED: PROPOFOL 500 MG/50 ML VIAL As Ordered ONE (14:25)
[2019-10-13] MEDS ORDERED: fentaNYL 100 MCG/2 ML INJECTION (J3010) As Ordered ONE ×2 (14:26→14:36)
[2019-10-13] MEDS ORDERED: BUPIVACAINE HCL 0.5% 30 ML VIAL As Ordered ONE (14:41)
[2019-10-13] MEDS: ISOVUE-300 61% 50ML VIAL (Q9967) As Ordered ONE (14:56)
[2019-10-13] MEDS: ceFAZolin SOD 2 GM in IV 1 EA IV ONE (15:21)
[2019-10-13] MEDS ORDERED: dexameTHASONE 4 MG/ML 1ML VIAL (J1100) As Ordered ONE (15:38)
[2019-10-13] MEDS ORDERED: ONDANSETRON 4MG/2ML VIAL (J2405) As Ordered ONE (15:38)
[2019-10-13] MEDS ORDERED: ePHEDrine SULFATE 25 MG/5 ML(5MG/ML) SYRINGE As Ordered ONE (15:47)
[2019-10-13] MEDS: HEPARIN SOD (PORCINE) 5000 UNITS/ML VIAL As Ordered ONE (15:54)
[2019-10-13] MEDS: LIDOCAINE 1% SDV INJ 30 ML VIAL As Ordered ONE (16:27)
--- NOTE | 2019-10-13 16:56 | ROOPDOC ---
[facility] Report Of Operation Report of Operation DATE OF PROCEDURE: 10/13/19 PREPROCEDURE DIAGNOSES: End-stage renal disease requiring access for hemodialysis. POSTPROCEDURE DIAGNOSES: Same. PROCEDURE: Left upper extremity brachial basilic AV fistula creation. SURGEON: Jared Byrne MD ANESTHESIA: Monitored anesthesia care and left scalene nerve block. INDICATION FOR PROCEDURE: This is a very pleasant 63-year-old patient with end- stage renal disease requiring access for dialysis. She initially had a left upper extremity Julisa fistula placed by Dr. Morales, which failed shortly after placement. She also had an attempt with peritoneal dialysis catheter placement with Dr. Morales but this was also unsuccessful. She returns now for AV fistula creation. The patient has limited options due to very small veins in her bilateral upper extremities, however the basilic vein in the left upper extremity did meet criteria for fistula creation by diameter. Unfortunately, the patient did have blood drawn from the antecubital aspect of the basilic vein today, but we are hopeful that the vein will still be suitable for fistula creation as it is her only autologous option. Alternatively, we can place a brachial axillary graft, but we would prefer to use her own tissue if possible. Wrist benefits and alternatives to AV fistula creation were explained to the patient and she was agreeable to proceed. Informed consent was obtained. REPORT OF OPERATION: The patient was brought to the OR in stable condition and placed supine on the or table after a left scalene nerve block was placed by her anesthesia colleagues in PACU. Monitored anesthesia care and antibiotics were administered without complication. Her left upper extremity was prepped and draped in a sterile fashion. A timeout was performed. Local anesthesia was administered to the skin and subcutaneous tissue just distal to the left antecubital crease and a transverse incision was made over the brachial artery pulse and basilic vein. This was carried carefully down through subcutaneous tissue with Bovie cautery. The basilic vein was identified and skeletonized proximally and distally within the incision. We then continued R dissection posteriorly through the fascia to the brachial artery. This was skeletonized proximally and distally and Vesseloops replaced. We then returned our attention to the vein and there was a large branch that was suture ligated and divided and then a bulldog clamp was placed proximally distally a suture ligation was perfor med and the vein was spatulated. Dilators were passed through the vein, sequentially, 2.5 mm, 3 mm, 3.5 mm, and 4 mm without difficulty. Although the vein was small in the antecubital aspect, it seemed larger more proximally on the arm. We then secured the Vessey loops on the brachial artery and a 5 mm arteriotomy was made. We anastomosis the vein and an and decide fashion to the a rtery with 6-0 Prolene suture. Before the final sutures are placed we flushed the inflow and outflow artery and the vein. The anastomosis was irrigated with heparinized saline and the final sutures are placed. Flow was restored first through the inflow artery and outflow through the vein, and lastly flow was restored to the hand. There was good radial pulse after fistula creation in the hand was warm and pink. Following this, there was a good thrill over the basilic vein. Doppler confirmed good flow. The wound was copiously irrigated with normal saline. The deep tissues were approximated with interrupted Vicryl suture. The deep dermal layer was approximated with a running Vicryl suture. And the skin was closed a running subcuticular 4-0 Monocryl suture. Mastisol and Steri-Strips were used the length of the incision and a dry dressing was applied. The patient was allowed to awaken from anesthesia and taken to recovery in stable condition. ESTIMATED BLOOD LOSS: Approximately 10 mL. COMPLICATIONS: None. PLAN: We will see the patient back in a week to see how her incision is healing and how her fistula is maturing. She should continue to use her squeeze ball to help with fistula maturation. Resume all home medications. JARED BYRNE MD Oct 13, 2019 16:56
[2019-10-13] MEDS ORDERED: OXYC1TAB23 PO (16:58)
[2019-10-13 18:05] VITALS: BP 144/75
== END 2019-10-13 18:30 | disposition home or self-care (01) ==
LOC: M SDC 11:50
PROVIDERS: ATTEND Surgery Vascular Surgery
DX: N18.6 End stage renal disease (principal); I12.0 Hypertensive chronic kidney disease with stage 5 chronic kidney disease or end stage renal disease; E78.5 Hyperlipidemia, unspecified; D63.1 Anemia in chronic kidney disease; N25.81 Secondary hyperparathyroidism of renal origin; M1A.30X0 Chronic gout due to renal impairment, unspecified site, without tophus (tophi); K59.00 Constipation, unspecified; Z91.040 Latex allergy status; Z79.899 Other long term (current) drug therapy; Z90.710 Acquired absence of both cervix and uterus; Z94.0 Kidney transplant status

== ENCOUNTER 2019-11-27 11:31 | Outpatient (CLI) | payer MEDICARE, MEDICAID ==
[2019-11-27] VITALS (8 sets, daily range): BP systolic 125–158; BP diastolic 60–70
[~2019-11-27] VITALS: Ht 149.9 cm; Wt 49.0 kg
[~2019-11-27 11:31] MED LIST changes: +OXYC1TAB23 PO
== END 2019-11-27 17:30 | disposition home or self-care (01) ==
LOC: M INFU 11:31
PROVIDERS: ATTEND Internal Medicine Nephrology
DX: D64.9 Anemia, unspecified (principal); Z91.040 Latex allergy status
CPT/HCPCS: 36430; 36592; 86850; 86900; 86901; 86920; P9016

== ENCOUNTER → 2019-12-14 | Outpatient (REF) | payer MEDICARE, MEDICAID ==
[~2019-12-14] MED LIST changes: +VITACAP8 PO
[2019-12-14 11:49] LABS: BASO % 0.6 % (0.0-1.0); EOS # 0.2 10^3/uL (0.0-0.5); EOS % 3.4 % (0.0-3.0); HEMOGLOBIN 8.1 g/dl (12.0-15.5); LYMPH # 0.9 10^3/uL (1.5-5.0); MEAN CORPUSCULAR HEMOGLOBIN 29.1 pg (27.0-33.0); MEAN CORPUSCULAR HGB CONC 31.2 g/dl (32.0-36.5); MEAN CORPUSCULAR VOLUME 93.5 fl (80.0-96.0); MONO # 0.6 10^3/uL (0.0-0.8); MONO % 9.8 % (0.0-5.0); NEUTROPHILS # 4.6 10^3/uL (1.5-8.5); NEUTROPHILS % 71.6 % (36.0-66.0); PLATELET COUNT, AUTOMATED 272 10^3/uL (150-450); RED BLOOD COUNT 2.78 10^6/uL (4.00-5.40); WHITE BLOOD COUNT 6.4 10^3/uL (4.0-10.0)
[2019-12-14 12:28] LABS: ALBUMIN 3.2 GM/DL (3.2-5.2); CALCIUM LEVEL 9.3 MG/DL (8.8-10.2); CREATININE FOR GFR 3.61 MG/DL (0.55-1.30); GLOMERULAR FILTRATION RATE 13.5 (>45); PHOSPHORUS LEVEL 4.2 MG/DL (2.5-4.9); POTASSIUM SERUM 4.5 MEQ/L (3.5-5.1); URIC ACID 7.2 MG/DL (2.6-6.0)
[2019-12-14 12:54] LABS: PTH INTACT 232.6 PG/ML (18.5-88.0)
== END ==
PROVIDERS: ATTEND Internal Medicine Nephrology
DX: N18.5 Chronic kidney disease, stage 5 (principal); D63.1 Anemia in chronic kidney disease; M1A.30X0 Chronic gout due to renal impairment, unspecified site, without tophus (tophi); N25.81 Secondary hyperparathyroidism of renal origin

== ENCOUNTER → 2019-12-25 | Outpatient (REF) | payer MEDICARE, MEDICAID ==
[2019-12-25 09:39] LABS: BASO % 0.5 % (0.0-1.0); EOS # 0.2 10^3/uL (0.0-0.5); HEMOGLOBIN 7.6 g/dl (12.0-15.5); LYMPH # 0.9 10^3/uL (1.5-5.0); LYMPH % 16.1 % (24.0-44.0); MEAN CORPUSCULAR HEMOGLOBIN 29.3 pg (27.0-33.0); MEAN CORPUSCULAR HGB CONC 31.7 g/dl (32.0-36.5); MEAN CORPUSCULAR VOLUME 92.7 fl (80.0-96.0); MONO # 0.5 10^3/uL (0.0-0.8); MONO % 9.2 % (0.0-5.0); NEUTROPHILS # 4.1 10^3/uL (1.5-8.5); NEUTROPHILS % 70.5 % (36.0-66.0); PLATELET COUNT, AUTOMATED 355 10^3/uL (150-450); RED BLOOD COUNT 2.59 10^6/uL (4.00-5.40); WHITE BLOOD COUNT 5.8 10^3/uL (4.0-10.0)
[2019-12-25 10:54] LABS: ALBUMIN 3.6 GM/DL (3.2-5.2); CALCIUM LEVEL 9.2 MG/DL (8.8-10.2); CREATININE FOR GFR 3.52 MG/DL (0.55-1.30); GLOMERULAR FILTRATION RATE 13.9 (>45); PHOSPHORUS LEVEL 4.7 MG/DL (2.5-4.9); POTASSIUM SERUM 4.1 MEQ/L (3.5-5.1); URIC ACID 7.2 MG/DL (2.6-6.0)
[2019-12-25 11:11] LABS: PTH INTACT 173.9 PG/ML (18.5-88.0)
== END ==
PROVIDERS: ATTEND Internal Medicine Nephrology
DX: N18.3 Chronic kidney disease, stage 3 (moderate) (principal); D63.1 Anemia in chronic kidney disease; N25.81 Secondary hyperparathyroidism of renal origin; M1A.30X0 Chronic gout due to renal impairment, unspecified site, without tophus (tophi); Z94.0 Kidney transplant status

== ENCOUNTER 2019-12-29 16:07 | Outpatient (CLI) | payer MEDICARE, MEDICAID ==
[~2019-12-29] VITALS: Ht 149.9 cm; Wt 51.1 kg
[2019-12-29] VITALS (7 sets, daily range): BP systolic 135–143; BP diastolic 69–71
[2019-12-30 00:02] VITALS: BP 141/72
[2019-12-30 00:47] VITALS: BP 143/74
[2019-12-30 01:47] VITALS: BP 148/76
[2019-12-30 02:35] VITALS: BP 149/78
[2019-12-30 03:35] VITALS: BP 157/79
[2019-12-30] MEDS ORDERED: OXYC1TAB23 PO (14:35)
== END 2019-12-30 03:48 | disposition home or self-care (01) ==
LOC: M OPCLI4PV 16:07 → M MSPAV 16:09 → M OPCLI4PV 12-30 03:48
PROVIDERS: ATTEND Internal Medicine Nephrology
DX: N18.9 Chronic kidney disease, unspecified (principal); D63.1 Anemia in chronic kidney disease; Z91.040 Latex allergy status

== ENCOUNTER 2019-12-30 09:48 | Day surgery (SDC) | payer MEDICARE, MEDICAID ==
[~2019-12-30] VITALS: Ht 149.9 cm; Wt 51.6 kg
[~2019-12-30 09:48] MED LIST changes: +LIDOCAINE 1% MDV 20ML VIAL SQ PRN
[2019-12-30] MEDS ORDERED: LIDOCAINE 2% INJ 100 MG/5 ML SYRINGE As Ordered ONE (10:12)
[2019-12-30] MEDS ORDERED: fentaNYL 100 MCG/2 ML INJECTION (J3010) As Ordered ONE ×2 (10:12→11:59)
[2019-12-30] MEDS ORDERED: MIDAZOLAM INJ 2MG/2ML VIAL (J2250 PER 1MG) As Ordered ONE (10:12)
[2019-12-30] MEDS ORDERED: propofoL 200 MG/20 ML VIAL As Ordered ONE (10:12)
[2019-12-30] MEDS ORDERED: LIDOCAINE 2% 100MG/5ML SDV (FOR ANES.) As Ordered ONE (10:13)
[2019-12-30 10:51] LABS: HEMATOCRIT 32.6 % (36.0-47.0); HEMOGLOBIN 10.5 g/dl (12.0-15.5); MEAN CORPUSCULAR HEMOGLOBIN 28.7 pg (27.0-33.0); MEAN CORPUSCULAR HGB CONC 32.2 g/dl (32.0-36.5); MEAN CORPUSCULAR VOLUME 89.1 fl (80.0-96.0); PLATELET COUNT, AUTOMATED 287 10^3/uL (150-450); RED BLOOD COUNT 3.66 10^6/uL (4.00-5.40); WHITE BLOOD COUNT 8.5 10^3/uL (4.0-10.0)
[2019-12-30] MEDS: D5W/0.2% SODIUM CHLORIDE 1,000 ML IV ONE (11:00)
[2019-12-30 11:02] LABS: INR 0.96; PROTHROMBIN TIME 12.4 SECONDS (11.8-14.0)
[2019-12-30 11:10] LABS: CALCIUM LEVEL 9.6 MG/DL (8.8-10.2); CREATININE FOR GFR 3.48 MG/DL (0.55-1.30); POTASSIUM SERUM 4.2 MEQ/L (3.5-5.1)
[2019-12-30] MEDS: ceFAZolin SOD 2 GM in IV 1 EA IV ONE (11:30)
[2019-12-30] MEDS ORDERED: PHENYLephrine HCL 500 MCG/5 ML (100MCG/ML) SYRINGE (J2370) As Ordered ONE (11:36)
[2019-12-30] MEDS ORDERED: ePHEDrine SULFATE 25 MG/5 ML(5MG/ML) SYRINGE As Ordered ONE (11:36)
[2019-12-30] MEDS ORDERED: dexameTHASONE 4 MG/ML 1ML VIAL (J1100 PER 1MG) As Ordered ONE (11:36)
[2019-12-30] MEDS ORDERED: ONDANSETRON 4MG/2ML VIAL As Ordered ONE (11:49)
[2019-12-30] MEDS: HEPARIN SOD (PORCINE) 5000UNITS/ML VIAL (J1644 PER 1000UNITS) As Ordered ONE (12:30)
[2019-12-30] MEDS: LIDOCAINE 1% SDV 30ML VIAL As Ordered ONE (12:30)
[2019-12-30] MEDS ORDERED: HYDROmorphone HCL 2 MG/ML 1ML VIAL (J1170) As Ordered ONE (12:54)
[2019-12-30] MEDS ORDERED: fentaNYL 100 MCG/2 ML INJECTION (J3010) IV PRN ×2 (14:30→16:00)
[2019-12-30] MEDS ORDERED: D5W 1,000 ML IV SCH (14:30)
[2019-12-30] MEDS ORDERED: ONDANSETRON 4MG/2ML VIAL IV PRN ×2 (14:30→16:00)
[2019-12-30] MEDS ORDERED: METOCLOPRAMIDE INJ 10MG/2ML VIAL (J2765 PER 1) IV PRN ×2 (14:30→16:00)
[2019-12-30] MEDS ORDERED: OXYC1TAB23 PO (14:35)
[2019-12-30] MEDS ORDERED: METOCLOPRAMIDE INJ 10MG/2ML VIAL (J2765 PER 1) As Ordered ONE (14:48)
[2019-12-30] MEDS ORDERED: LR 1,000 ML IV SCH (16:00)
[2019-12-30] MEDS ORDERED: PERCOCET 5MG/325MG TAB PO PRN (16:00)
[2019-12-30] MEDS ORDERED: ACETAMINOPHEN 500 MG TAB As Ordered ONE (17:01)
[2019-12-30 17:05] VITALS: BP 148/74
--- NOTE | 2019-12-30 17:11 | ROOPDOC ---
[facility] Report Of Operation Report of Operation DATE OF PROCEDURE: 12/30/19 PREPROCEDURE DIAGNOSES: Stage IV renal insufficiency with left brachial basilic AV fistula too deep for cannulation POSTPROCEDURE DIAGNOSES: Same PROCEDURE: Left basilic vein transposition SURGEON: Jared Byrne MD ANESTHESIA: General anesthesia INDICATION FOR PROCEDURE: This is a very pleasant 64-year-old patient with stage IV renal insufficiency who will likely require dialysis and the imminent future. She underwent creation of the left brachial basilic AV fistula, and now returns for basilic vein transposition. The basilic vein lies deep in the arm and must be transposed to make it more superficial over the biceps that for cannulation for dialysis. Risks benefits and alternatives to left basilic vein transposition were explained to the patient and she is agreeable to proceed. Informed consent was obtained. REPORT OF OPERATION: The patient was brought to the operating room in stable condition and placed supine on the OR table. General anesthesia and antibiotics were administered without complication. Her left upper extremity was prepped and draped in a sterile fashion. A timeout was performed. Incision was made over the basilic vein thrill near the AV anastomosis and carried down through the subcutaneous tissues with Bovie cautery. The basilic vein was skeletonized pro ximal and distally within the incision and branches were suture ligated and divided. We then extended the incision over the basilic vein and continued the dissection with Bovie cautery. The vein was again skeletonized proximally and distally within the incision and bridging nerves were preserved. Branches were suture ligated and divided. We then extended the incision again toward the axilla and carried this down to the subcutaneous tissue. The vein was skeletonized proximally and distally and branches were suture ligated and divided. Once the vein was fully free, a bulldog clamp was placed proximally and distally and the proximal aspect of the vein was transected with the beveled edge. We then tunneled the vein through the subcutaneous tissue superficially o mahamed the biceps and reanastomosed and an end-to-end fashion with running 6-0 Prolene suture. Before the final suture was placed and before timing, we restored flow through the vein to make sure that the vein was fully distended and to make sure we did not pursestring suture and narrow the vein. Then the final suture was placed and the suture was secured. Good hemostasis was noted. W e irrigated with copious amounts of normal saline. There was a good thrill palpable on the skin. There is a good radial pulse and the hand was warm and well-perfused. The deep tissues were reapproximated to close the disc space with interrupted Vicryl sutures. The fascia was closed in 2 layers with running Vicryl suture. Deep dermal layer was approximated with interrupted Vicryl espa[place] tures. The skin was closed with running subcuticular Monocryl suture. Skin was cleaned and dried. Mastisol and Steri-Strips were placed the length of the incision. Dry gauze and Tegaderms were placed over the Steri-Strips for final dressing. The patient was last awakened from anesthesia was taken to recovery in stable condition. SPECIMENS & DRAINS: None ESTIMATED BLOOD LOSS: Approximately 25 mL. COMPLICATIONS: None. PLAN: We will see the patient back in clinic in a week to check her incision. The okay for her to shower but no tub baths. Steri-Strips should follow up on their own in approximately 7-10 days. The patient was given a sling for comfort if desired. Percocet prescription given for analgesia as needed. JARED BYRNE MD Dec 30, 2019 17:11
[2019-12-30] MEDS ORDERED: ACETAMINOPHEN 500 MG TAB PO SCH (17:15)
== END 2019-12-30 17:20 | disposition home or self-care (01) ==
LOC: M SDC 09:48
PROVIDERS: ATTEND Surgery Vascular Surgery
DX: N18.4 Chronic kidney disease, stage 4 (severe) (principal); I12.9 Hypertensive chronic kidney disease with stage 1 through stage 4 chronic kidney disease, or unspecified chronic kidney disease; D63.1 Anemia in chronic kidney disease; E78.5 Hyperlipidemia, unspecified; N25.81 Secondary hyperparathyroidism of renal origin; M1A.30X0 Chronic gout due to renal impairment, unspecified site, without tophus (tophi); E87.2 Acidosis; R05 Cough; K21.9 Gastro-esophageal reflux disease without esophagitis; R51 Headache; K59.00 Constipation, unspecified; R06.83 Snoring; Z79.899 Other long term (current) drug therapy; Z86.19 Personal history of other infectious and parasitic diseases; Z90.710 Acquired absence of both cervix and uterus; Z91.040 Latex allergy status; Z94.0 Kidney transplant status

== ENCOUNTER → 2020-01-19 | Outpatient (REF) | payer MEDICARE, MEDICAID ==
[~2020-01-19] MED LIST changes: -LIDOCAINE 1% MDV 20ML VIAL SQ PRN
[2020-01-19 12:04] LABS: BASO % 0.4 % (0.0-1.0); EOS # 0.1 10^3/uL (0.0-0.5); EOS % 1.5 % (0.0-3.0); HEMOGLOBIN 7.7 g/dl (12.0-15.5); LYMPH # 0.4 10^3/uL (1.5-5.0); LYMPH % 5.4 % (24.0-44.0); MEAN CORPUSCULAR HEMOGLOBIN 28.6 pg (27.0-33.0); MEAN CORPUSCULAR HGB CONC 32.1 g/dl (32.0-36.5); MEAN CORPUSCULAR VOLUME 89.2 fl (80.0-96.0); MONO # 0.7 10^3/uL (0.0-0.8); MONO % 8.5 % (0.0-5.0); NEUTROPHILS # 6.7 10^3/uL (1.5-8.5); NEUTROPHILS % 83.7 % (36.0-66.0); PLATELET COUNT, AUTOMATED 282 10^3/uL (150-450); RED BLOOD COUNT 2.69 10^6/uL (4.00-5.40)
[2020-01-19 12:24] LABS: ALBUMIN 3.3 GM/DL (3.2-5.2); CALCIUM LEVEL 8.9 MG/DL (8.8-10.2); CREATININE FOR GFR 3.54 MG/DL (0.55-1.30); GLOMERULAR FILTRATION RATE 13.8 (>45); POTASSIUM SERUM 4.3 MEQ/L (3.5-5.1); URIC ACID 7.1 MG/DL (2.6-6.0)
== END ==
PROVIDERS: ATTEND Internal Medicine Nephrology
DX: N18.1 Chronic kidney disease, stage 1 (principal); D63.1 Anemia in chronic kidney disease; M1A.30X0 Chronic gout due to renal impairment, unspecified site, without tophus (tophi); Z94.0 Kidney transplant status; N25.81 Secondary hyperparathyroidism of renal origin

== ENCOUNTER → 2020-02-16 | Outpatient (REF) | payer MEDICARE, MEDICAID ==
[2020-02-16 12:27] LABS: BASO % 0.3 % (0.0-1.0); EOS # 0.1 10^3/uL (0.0-0.5); LYMPH # 0.7 10^3/uL (1.5-5.0); LYMPH % 11.6 % (24.0-44.0); MEAN CORPUSCULAR HEMOGLOBIN 29.7 pg (27.0-33.0); MEAN CORPUSCULAR HGB CONC 32.4 g/dl (32.0-36.5); MEAN CORPUSCULAR VOLUME 91.6 fl (80.0-96.0); MONO # 0.6 10^3/uL (0.0-0.8); MONO % 9.9 % (0.0-5.0); NEUTROPHILS # 4.8 10^3/uL (1.5-8.5); NEUTROPHILS % 75.7 % (36.0-66.0); PLATELET COUNT, AUTOMATED 299 10^3/uL (150-450); RED BLOOD COUNT 2.02 10^6/uL (4.00-5.40); WHITE BLOOD COUNT 6.4 10^3/uL (4.0-10.0)
[2020-02-16 12:31] LABS: HEMATOCRIT 18.5 % (36.0-47.0)
[2020-02-16 12:55] LABS: ALBUMIN 3.2 GM/DL (3.2-5.2); CALCIUM LEVEL 8.8 MG/DL (8.8-10.2); CREATININE FOR GFR 3.78 MG/DL (0.55-1.30); GLOMERULAR FILTRATION RATE 12.8 (>45); PHOSPHORUS LEVEL 4.7 MG/DL (2.5-4.9)
[2020-02-16 13:03] LABS: PTH INTACT 282.3 PG/ML (18.5-88.0)
== END ==
PROVIDERS: ATTEND Internal Medicine Nephrology
DX: M1A.30X0 Chronic gout due to renal impairment, unspecified site, without tophus (tophi) (principal); D64.9 Anemia, unspecified; Z94.0 Kidney transplant status

== ENCOUNTER 2020-02-18 07:43 | Outpatient (CLI) | payer MEDICARE, MEDICAID ==
[~2020-02-18] VITALS: Ht 149.9 cm; Wt 51.1 kg
[2020-02-18] VITALS (8 sets, daily range): BP systolic 132–149; BP diastolic 61–71
== END 2020-02-18 13:15 | disposition home or self-care (01) ==
LOC: M INFU 07:43
PROVIDERS: ATTEND Internal Medicine Nephrology
DX: D64.9 Anemia, unspecified (principal); Z91.040 Latex allergy status
CPT/HCPCS: 36430; 86850; 86900; 86901; 86920; P9016

== ENCOUNTER → 2020-02-26 | Outpatient (REF) | payer MEDICARE, MEDICAID ==
[2020-02-26 10:20] LABS: BASO % 0.4 % (0.0-1.0); EOS # 0.1 10^3/uL (0.0-0.5); EOS % 1.8 % (0.0-3.0); HEMATOCRIT 28.6 % (36.0-47.0); HEMOGLOBIN 9.5 g/dl (12.0-15.5); LYMPH # 0.6 10^3/uL (1.5-5.0); LYMPH % 9.2 % (24.0-44.0); MEAN CORPUSCULAR HGB CONC 33.2 g/dl (32.0-36.5); MEAN CORPUSCULAR VOLUME 87.2 fl (80.0-96.0); MONO # 0.7 10^3/uL (0.0-0.8); MONO % 9.6 % (0.0-5.0); NEUTROPHILS # 5.3 10^3/uL (1.5-8.5); NEUTROPHILS % 78.6 % (36.0-66.0); PLATELET COUNT, AUTOMATED 262 10^3/uL (150-450); RED BLOOD COUNT 3.28 10^6/uL (4.00-5.40); WHITE BLOOD COUNT 6.8 10^3/uL (4.0-10.0)
[2020-02-26 11:06] LABS: IMMUNOGLOBULIN M 50.3 MG/DL (40-230)
== END ==
PROVIDERS: ATTEND Internal Medicine Hematology & Oncology
DX: D64.9 Anemia, unspecified (principal)

== ENCOUNTER → 2020-03-02 | Outpatient (REF) | payer MEDICARE, MEDICAID ==
[2020-03-02 09:50] LABS: BASO % 0.5 % (0.0-1.0); EOS # 0.1 10^3/uL (0.0-0.5); EOS % 2.2 % (0.0-3.0); HEMOGLOBIN 9.9 g/dl (12.0-15.5); LYMPH # 0.8 10^3/uL (1.5-5.0); LYMPH % 13.9 % (24.0-44.0); MEAN CORPUSCULAR HEMOGLOBIN 29.3 pg (27.0-33.0); MEAN CORPUSCULAR VOLUME 88.8 fl (80.0-96.0); MONO # 0.7 10^3/uL (0.0-0.8); MONO % 11.4 % (0.0-5.0); NEUTROPHILS # 4.3 10^3/uL (1.5-8.5); NEUTROPHILS % 71.5 % (36.0-66.0); PLATELET COUNT, AUTOMATED 261 10^3/uL (150-450); RED BLOOD COUNT 3.38 10^6/uL (4.00-5.40)
== END ==
PROVIDERS: ATTEND Internal Medicine Nephrology
DX: N18.9 Chronic kidney disease, unspecified (principal); D63.1 Anemia in chronic kidney disease

== ENCOUNTER → 2020-03-07 | Outpatient (REF) | payer MEDICARE, MEDICAID ==
[2020-03-07 11:26] LABS: BASO % 0.4 % (0.0-1.0); EOS # 0.2 10^3/uL (0.0-0.5); HEMATOCRIT 25.6 % (36.0-47.0); HEMOGLOBIN 8.6 g/dl (12.0-15.5); LYMPH # 0.6 10^3/uL (1.5-5.0); LYMPH % 7.3 % (24.0-44.0); MEAN CORPUSCULAR HEMOGLOBIN 29.4 pg (27.0-33.0); MEAN CORPUSCULAR HGB CONC 33.6 g/dl (32.0-36.5); MEAN CORPUSCULAR VOLUME 87.4 fl (80.0-96.0); MONO # 0.7 10^3/uL (0.0-0.8); MONO % 8.9 % (0.0-5.0); NEUTROPHILS # 6.1 10^3/uL (1.5-8.5); PLATELET COUNT, AUTOMATED 263 10^3/uL (150-450); RED BLOOD COUNT 2.93 10^6/uL (4.00-5.40); WHITE BLOOD COUNT 7.6 10^3/uL (4.0-10.0)
[2020-03-07 11:48] LABS: ERYTHROCYTE SEDIMENTATION RATE 89 mm/hr (0-30)
[2020-03-07 12:21] LABS: FERRITIN 4316 NG/ML (8-252); FOLATE > 24.0 NG/ML (>5.4); IMMUNOGLOBULIN G 768 MG/DL (681-1648); IRON (FE) 198 UG/DL (50-170); LDH LACTATE DEHYDROGENASE 232 U/L (84-246); MAGNESIUM LEVEL 1.8 MG/DL (1.8-2.4); PERCENT SATURATION 101.5 % (13.2-45.0); TOTAL IRON BINDING CAPACITY 195 UG/DL (250-450); TOTAL PROTEIN 6.4 GM/DL (6.4-8.2); VITAMIN B12 LEVEL 816 PG/ML (247-911)
[2020-03-08 11:13] LABS: ALBUMIN 3.83 GM/DL (3.29-5.55); ALBUMIN % 59.9 % (55.8-66.1); ALPHA-1-GLOBULIN % 5.3 % (2.9-4.9); ALPHA-1-GLOBULINS 0.34 GM/DL (0.17-0.41); ALPHA-2-GLOBULINS 0.83 GM/DL (0.42-0.99); BETA-1-GLOBULINS 0.29 GM/DL (0.28-0.60); BETA-1-GLOBULINS % 4.6 % (4.7-7.2); BETA-2-GLOBULINS 0.35 GM/DL (0.19-0.55); BETA-2-GLOBULINS % 5.5 % (3.2-6.5); GAMMA GLOBULIN % 11.7 % (11.1-18.8); GAMMA GLOBULINS 0.75 GM/DL (0.65-1.58)
== END ==
PROVIDERS: ATTEND Internal Medicine Hematology & Oncology
DX: D64.9 Anemia, unspecified (principal)

== ENCOUNTER → 2020-03-09 | Outpatient (REF) | payer MEDICARE, MEDICAID ==
[2020-03-09 11:35] LABS: BASO % 0.4 % (0.0-1.0); EOS # 0.2 10^3/uL (0.0-0.5); EOS % 2.3 % (0.0-3.0); HEMATOCRIT 25.5 % (36.0-47.0); HEMOGLOBIN 8.5 g/dl (12.0-15.5); LYMPH # 0.6 10^3/uL (1.5-5.0); LYMPH % 8.7 % (24.0-44.0); MEAN CORPUSCULAR HEMOGLOBIN 29.4 pg (27.0-33.0); MEAN CORPUSCULAR HGB CONC 33.3 g/dl (32.0-36.5); MEAN CORPUSCULAR VOLUME 88.2 fl (80.0-96.0); MONO # 0.9 10^3/uL (0.0-0.8); MONO % 12.6 % (0.0-5.0); NEUTROPHILS # 5.2 10^3/uL (1.5-8.5); NEUTROPHILS % 75.4 % (36.0-66.0); PLATELET COUNT, AUTOMATED 246 10^3/uL (150-450); RED BLOOD COUNT 2.89 10^6/uL (4.00-5.40); WHITE BLOOD COUNT 6.9 10^3/uL (4.0-10.0)
== END ==
PROVIDERS: ATTEND Internal Medicine Hematology & Oncology
DX: N18.5 Chronic kidney disease, stage 5 (principal); D63.1 Anemia in chronic kidney disease; N25.81 Secondary hyperparathyroidism of renal origin

== ENCOUNTER → 2020-03-14 | Outpatient (REF) | payer MEDICARE, MEDICAID ==
[2020-03-14 09:49] LABS: BASO % 0.3 % (0.0-1.0); EOS # 0.1 10^3/uL (0.0-0.5); EOS % 2.1 % (0.0-3.0); HEMOGLOBIN 7.7 g/dl (12.0-15.5); LYMPH # 0.6 10^3/uL (1.5-5.0); LYMPH % 10.3 % (24.0-44.0); MEAN CORPUSCULAR HEMOGLOBIN 29.5 pg (27.0-33.0); MEAN CORPUSCULAR HGB CONC 33.5 g/dl (32.0-36.5); MEAN CORPUSCULAR VOLUME 88.1 fl (80.0-96.0); MONO # 0.5 10^3/uL (0.0-0.8); MONO % 8.2 % (0.0-5.0); NEUTROPHILS # 4.6 10^3/uL (1.5-8.5); NEUTROPHILS % 78.6 % (36.0-66.0); PLATELET COUNT, AUTOMATED 259 10^3/uL (150-450); RED BLOOD COUNT 2.61 10^6/uL (4.00-5.40); WHITE BLOOD COUNT 5.8 10^3/uL (4.0-10.0)
[2020-03-14 10:12] LABS: ALBUMIN 3.3 GM/DL (3.2-5.2); CALCIUM LEVEL 8.9 MG/DL (8.8-10.2); CREATININE FOR GFR 3.65 MG/DL (0.55-1.30); GLOMERULAR FILTRATION RATE 13.3 (>45); PHOSPHORUS LEVEL 4.7 MG/DL (2.5-4.9); POTASSIUM SERUM 3.5 MEQ/L (3.5-5.1); URIC ACID 7.7 MG/DL (2.6-6.0)
[2020-03-14 10:26] LABS: PTH INTACT 303.2 PG/ML (18.5-88.0)
== END ==
PROVIDERS: ATTEND Internal Medicine Nephrology
DX: N18.5 Chronic kidney disease, stage 5 (principal); D63.1 Anemia in chronic kidney disease; M1A.30X0 Chronic gout due to renal impairment, unspecified site, without tophus (tophi); Z94.0 Kidney transplant status; N25.81 Secondary hyperparathyroidism of renal origin

== ENCOUNTER → 2020-03-21 | Outpatient (REF) | payer MEDICARE, MEDICAID ==
[2020-03-21 12:45] LABS: BASO % 0.4 % (0.0-1.0); EOS # 0.2 10^3/uL (0.0-0.5); EOS % 1.7 % (0.0-3.0); HEMATOCRIT 22.3 % (36.0-47.0); HEMOGLOBIN 7.5 g/dl (12.0-15.5); LYMPH # 0.5 10^3/uL (1.5-5.0); LYMPH % 5.2 % (24.0-44.0); MEAN CORPUSCULAR HEMOGLOBIN 29.5 pg (27.0-33.0); MEAN CORPUSCULAR HGB CONC 33.6 g/dl (32.0-36.5); MEAN CORPUSCULAR VOLUME 87.8 fl (80.0-96.0); MONO % 10.1 % (0.0-5.0); NEUTROPHILS # 7.7 10^3/uL (1.5-8.5); NEUTROPHILS % 82.1 % (36.0-66.0); PLATELET COUNT, AUTOMATED 262 10^3/uL (150-450); RED BLOOD COUNT 2.54 10^6/uL (4.00-5.40); WHITE BLOOD COUNT 9.4 10^3/uL (4.0-10.0)
== END ==
PROVIDERS: ATTEND Internal Medicine Nephrology
DX: D64.9 Anemia, unspecified (principal)

== ENCOUNTER 2020-03-22 12:02 | Outpatient (CLI) | payer MEDICARE, MEDICAID ==
[2020-03-22] VITALS (8 sets, daily range): BP systolic 122–157; BP diastolic 60–84
[~2020-03-22] VITALS: Ht 149.9 cm; Wt 52.3 kg
== END 2020-03-22 16:30 | disposition home or self-care (01) ==
LOC: M INFU 12:02
PROVIDERS: ATTEND Internal Medicine Nephrology
DX: N18.9 Chronic kidney disease, unspecified (principal); D63.1 Anemia in chronic kidney disease
CPT/HCPCS: 36430; 85025; 86880; 86920; P9016

== ENCOUNTER → 2020-03-22 | Outpatient (REF) | payer MEDICARE, MEDICAID ==
[2020-03-22 11:49] LABS: BASO % 0.2 % (0.0-1.0); EOS # 0.2 10^3/uL (0.0-0.5); EOS % 1.9 % (0.0-3.0); HEMATOCRIT 21.4 % (36.0-47.0); HEMOGLOBIN 7.1 g/dl (12.0-15.5); LYMPH # 0.5 10^3/uL (1.5-5.0); MEAN CORPUSCULAR HEMOGLOBIN 28.9 pg (27.0-33.0); MEAN CORPUSCULAR HGB CONC 33.2 g/dl (32.0-36.5); MONO # 0.9 10^3/uL (0.0-0.8); MONO % 11.4 % (0.0-5.0); NEUTROPHILS # 6.4 10^3/uL (1.5-8.5); NEUTROPHILS % 79.9 % (36.0-66.0); PLATELET COUNT, AUTOMATED 256 10^3/uL (150-450); RED BLOOD COUNT 2.46 10^6/uL (4.00-5.40); WHITE BLOOD COUNT 8.1 10^3/uL (4.0-10.0)
== END ==
PROVIDERS: ATTEND Internal Medicine Nephrology
DX: D64.9 Anemia, unspecified (principal); D63.1 Anemia in chronic kidney disease

== ENCOUNTER → 2020-04-04 | Outpatient (REF) | payer MEDICARE, MEDICAID | PROVIDERS: ATTEND Internal Medicine Nephrology | DX: D64.9 Anemia, unspecified (principal) ==

== ENCOUNTER → 2020-04-05 | Outpatient (REF) | payer MEDICARE, MEDICAID ==
[2020-04-05 09:55] LABS: BASO % 0.5 % (0.0-1.0); EOS # 0.2 10^3/uL (0.0-0.5); EOS % 3.1 % (0.0-3.0); HEMATOCRIT 25.9 % (36.0-47.0); HEMOGLOBIN 8.6 g/dl (12.0-15.5); LYMPH # 0.7 10^3/uL (1.5-5.0); LYMPH % 11.7 % (24.0-44.0); MEAN CORPUSCULAR HEMOGLOBIN 29.1 pg (27.0-33.0); MEAN CORPUSCULAR HGB CONC 33.2 g/dl (32.0-36.5); MEAN CORPUSCULAR VOLUME 87.5 fl (80.0-96.0); MONO # 0.6 10^3/uL (0.0-0.8); NEUTROPHILS # 4.3 10^3/uL (1.5-8.5); NEUTROPHILS % 74.2 % (36.0-66.0); PLATELET COUNT, AUTOMATED 241 10^3/uL (150-450); RED BLOOD COUNT 2.96 10^6/uL (4.00-5.40); WHITE BLOOD COUNT 5.8 10^3/uL (4.0-10.0)
== END ==
PROVIDERS: ATTEND Internal Medicine Nephrology
DX: D64.9 Anemia, unspecified (principal)

== ENCOUNTER → 2020-04-07 | Outpatient (REF) | payer MEDICARE, MEDICAID ==
[2020-04-07 12:57] LABS: BASO % 0.3 % (0.0-1.0); EOS # 0.1 10^3/uL (0.0-0.5); EOS % 1.4 % (0.0-3.0); HEMATOCRIT 24.7 % (36.0-47.0); HEMOGLOBIN 8.4 g/dl (12.0-15.5); LYMPH # 0.3 10^3/uL (1.5-5.0); LYMPH % 3.3 % (24.0-44.0); MEAN CORPUSCULAR HEMOGLOBIN 29.6 pg (27.0-33.0); MONO # 0.8 10^3/uL (0.0-0.8); MONO % 8.9 % (0.0-5.0); NEUTROPHILS # 8.1 10^3/uL (1.5-8.5); NEUTROPHILS % 85.3 % (36.0-66.0); PLATELET COUNT, AUTOMATED 263 10^3/uL (150-450); RED BLOOD COUNT 2.84 10^6/uL (4.00-5.40); WHITE BLOOD COUNT 9.5 10^3/uL (4.0-10.0)
[2020-04-07 13:24] LABS: ALBUMIN 3.3 GM/DL (3.2-5.2); BLOOD UREA NITROGEN 78 MG/DL (7-18); CALCIUM LEVEL 8.6 MG/DL (8.8-10.2); CARBON DIOXIDE LEVEL 22 MEQ/L (21-32); CHLORIDE LEVEL 109 MEQ/L (98-107); CREATININE FOR GFR 3.48 MG/DL (0.55-1.30); GLUCOSE, FASTING 165 MG/DL (70-100); PHOSPHORUS LEVEL 4.1 MG/DL (2.5-4.9); SODIUM LEVEL 141 MEQ/L (136-145)
[2020-04-08 09:51] LABS: HEPATITIS B SURFACE ANTIBODY POSITIVE (POSITIVE)
[2020-04-08 10:01] LABS: HEPATITIS B SURFACE ANTIGEN NEGATIVE (NEGATIVE)
[2020-04-08 10:29] LABS: HEPATITIS C VIRUS ABY INDEX 0.2 INDEX (<0.8)
[2020-04-08 10:30] LABS: HEPATITIS B CORE ANTIBODY IGM NEGATIVE (NEGATIVE)
== END ==
PROVIDERS: ATTEND Internal Medicine Nephrology
DX: N18.6 End stage renal disease (principal); D63.1 Anemia in chronic kidney disease

== ENCOUNTER → 2020-04-19 | Outpatient (REF) | payer MEDICARE, MEDICAID ==
[2020-04-19 09:44] LABS: BASO % 0.6 % (0.0-1.0); EOS # 0.2 10^3/uL (0.0-0.5); EOS % 2.2 % (0.0-3.0); HEMATOCRIT 21.6 % (36.0-47.0); HEMOGLOBIN 7.1 g/dl (12.0-15.5); LYMPH # 0.7 10^3/uL (1.5-5.0); LYMPH % 9.2 % (24.0-44.0); MEAN CORPUSCULAR HEMOGLOBIN 29.2 pg (27.0-33.0); MEAN CORPUSCULAR HGB CONC 32.9 g/dl (32.0-36.5); MEAN CORPUSCULAR VOLUME 88.9 fl (80.0-96.0); MONO # 0.9 10^3/uL (0.0-0.8); MONO % 12.2 % (0.0-5.0); NEUTROPHILS # 5.4 10^3/uL (1.5-8.5); PLATELET COUNT, AUTOMATED 251 10^3/uL (150-450); RED BLOOD COUNT 2.43 10^6/uL (4.00-5.40); WHITE BLOOD COUNT 7.2 10^3/uL (4.0-10.0)
== END ==
PROVIDERS: ATTEND Internal Medicine Hematology & Oncology
DX: D64.9 Anemia, unspecified (principal)

== ENCOUNTER → 2020-04-20 | Outpatient (REF) | payer MEDICARE, MEDICAID ==
[2020-04-20 12:02] LABS: BASO % 0.3 % (0.0-1.0); EOS # 0.2 10^3/uL (0.0-0.5); EOS % 2.4 % (0.0-3.0); LYMPH # 0.6 10^3/uL (1.5-5.0); LYMPH % 9.5 % (24.0-44.0); MEAN CORPUSCULAR HEMOGLOBIN 29.1 pg (27.0-33.0); MEAN CORPUSCULAR HGB CONC 33.2 g/dl (32.0-36.5); MEAN CORPUSCULAR VOLUME 87.8 fl (80.0-96.0); MONO # 0.5 10^3/uL (0.0-0.8); MONO % 7.7 % (0.0-5.0); NEUTROPHILS % 79.6 % (36.0-66.0); PLATELET COUNT, AUTOMATED 251 10^3/uL (150-450); RED BLOOD COUNT 2.37 10^6/uL (4.00-5.40); WHITE BLOOD COUNT 6.2 10^3/uL (4.0-10.0)
[2020-04-20 12:07] LABS: ALBUMIN 3.1 GM/DL (3.2-5.2); CALCIUM LEVEL 8.6 MG/DL (8.8-10.2); CREATININE FOR GFR 3.89 MG/DL (0.55-1.30); GLOMERULAR FILTRATION RATE 12.4 (>45); PHOSPHORUS LEVEL 4.6 MG/DL (2.5-4.9); POTASSIUM SERUM 3.7 MEQ/L (3.5-5.1); URIC ACID 7.8 MG/DL (2.6-6.0)
[2020-04-20 12:12] LABS: PTH INTACT 255.1 PG/ML (18.5-88.0)
[2020-04-20 12:13] LABS: HEMATOCRIT 20.8 % (36.0-47.0); HEMOGLOBIN 6.9 g/dl (12.0-15.5)
== END ==
PROVIDERS: ATTEND Internal Medicine Nephrology
DX: N18.5 Chronic kidney disease, stage 5 (principal); Z94.0 Kidney transplant status; D63.1 Anemia in chronic kidney disease

== ENCOUNTER → 2020-07-01 | Outpatient (CLI) | payer MEDICARE, MEDICAID ==
[~2020-07-01] MED LIST changes: +ISOVUE-370 76% 100ML VIAL As Ordered ONE; +RENOCAP PO
--- NOTE | 2020-08-02 11:26 | REP ---
CONTRAST ENHANCED CHEST CT CLINICAL: Cough. Pneumonia. TECHNIQUE: Axial contrast enhanced images from the thoracic inlet to the upper abdomen using 75 mL of Isovue-370 intravenous contrast material with coronal and sagittal reformations. COMPARISON: None. FINDINGS: Moderate right middle lobe atelectasis is appreciated along with small area of right upper lobe atelectasis. No further areas of consolidation. No effusion or pneumothorax. No significant adenopathy. The mediastinum demonstrates atherosclerotic changes to the thoracic aorta and coronary arteries. The tracheobronchial tree is patent. The musculoskeletal structures are intact. Limited upper abdomen demonstrates normal bilateral adrenal glands along with atrophic appearance of the bilateral kidneys. IMPRESSION: * Moderate right middle lobe atelectasis and small focus of right upper lobe atelectasis. No associated adenopathy or effusion. * Limited upper abdomen demonstrates atrophic changes to the bilateral kidneys. MTDD
== END ==
LOC: M RAD 09:55
PROVIDERS: ATTEND Internal Medicine Nephrology
DX: R05 Cough (principal); J98.11 Atelectasis; N26.1 Atrophy of kidney (terminal); I70.0 Atherosclerosis of aorta; I25.10 Atherosclerotic heart disease of native coronary artery without angina pectoris
CPT/HCPCS: 71260; Q9967

== ENCOUNTER → 2020-10-19 | Outpatient (REF) | payer MEDICARE, MEDICAID ==
[~2020-10-19] MED LIST changes: -ISOVUE-370 76% 100ML VIAL As Ordered ONE
[2020-10-20 09:18] LABS: INFLUENZA A AMPLIFICATION NEGATIVE (NEGATIVE); INFLUENZA B AMPLIFICATION NEGATIVE (NEGATIVE)
== END ==
PROVIDERS: ATTEND Internal Medicine
DX: Z20.828 Contact with and (suspected) exposure to other viral communicable diseases (principal)
CPT/HCPCS: 87502; U0003

== ENCOUNTER → 2020-10-24 | Outpatient (REF) | payer MEDICARE, MEDICAID | PROVIDERS: ATTEND Internal Medicine | DX: Z20.828 Contact with and (suspected) exposure to other viral communicable diseases (principal) ==

== ENCOUNTER → 2020-10-31 | Outpatient (REF) | payer MEDICARE, MEDICAID | PROVIDERS: ATTEND Internal Medicine | DX: Z20.828 Contact with and (suspected) exposure to other viral communicable diseases (principal) ==

== ENCOUNTER → 2020-11-07 | Outpatient (REF) | payer MEDICARE, MEDICAID | PROVIDERS: ATTEND Internal Medicine | DX: Z11.52 Encounter for screening for COVID-19 (principal) ==

== ENCOUNTER → 2020-11-14 | Outpatient (REF) | payer MEDICARE, MEDICAID | PROVIDERS: ATTEND Internal Medicine | DX: Z20.822 Contact with and (suspected) exposure to COVID-19 (principal) ==

== ENCOUNTER → 2020-11-21 | Outpatient (REF) | payer MEDICARE, MEDICAID | PROVIDERS: ATTEND Internal Medicine | DX: Z20.822 Contact with and (suspected) exposure to COVID-19 (principal) ==

== ENCOUNTER → 2020-11-28 | Outpatient (REF) | payer MEDICARE, MEDICAID | PROVIDERS: ATTEND Internal Medicine | DX: Z20.822 Contact with and (suspected) exposure to COVID-19 (principal) ==

== ENCOUNTER → 2020-12-02 | Outpatient (CLI) | payer MEDICARE, MEDICAID ==
[~2020-12-02] MED LIST changes: +ISOVUE-300 61% 50ML VIAL As Ordered ONE; +LIDOCAINE 1% MDV 20ML VIAL As Ordered ONE; +MIDAZOLAM INJ 2MG/2ML VIAL (J2250 PER 1MG) As Ordered ONE; +fentaNYL 100 MCG/2 ML INJECTION (J3010) As Ordered ONE
--- NOTE | 2020-12-02 16:03 | ROOPDOC ---
[facility] [place] Report of Operation DATE OF PROCEDURE: 12/02/20 PREPROCEDURE DIAGNOSES: End-stage renal disease with increased pulsatility in venous pressures left brachiobasilic AV fistula. POSTPROCEDURE DIAGNOSES: Same PROCEDURE: 1. Ultrasound-guided access left basilic vein 2. Left upper extremity fistulogram and central venogram 3. Angioplasty left basilic vein was 7 x 20 kiting balloon and 8 x 100 Radford balloon 4. Completion venograms SURGEON: Jared Byrne MD ANESTHESIA: Local anesthesia 2 mL lidocaine. Moderate intravenous conscious sedation was administered by Dr. Byrne. The patient was independently monitored by registered nurse signed to the Department of radiology using automated blood pressure, EKG, and pulse oximetry. The detailed sedation record is permanently stored in the hospital information system. The following is a brief sedation record: Start time 14:43, stop time 15:23, Versed 1 mg IV, fentanyl 50 g IV. CONTRAST: 36 mL Isovue-300 INDICATION FOR PROCEDURE: This is a very pleasant 65-year-old patient with end- stage renal disease currently dialyzing with a left brachiobasilic AV fistula who's had increased pulsatility in venous pressures. Risks benefits and alternatives to a fistulogram potential intervention were explained to the patient she is agreeable to proceed. Informed consent was obtained. INTERPRETATION: 1. The AV anastomosis is widely patent on ultrasound with good flow into the mildly aneurysmal basilic vein over the bicep. Images from ultrasound were saved. 2. The fistulogram revealed a widely patent basilic vein over the bicep that narrows to 1 focal 70% stenosis, and then a few centimeters proximal to this near where the vein returns to its normal anatomic lie from the transposition location, there is an 80% stenosis for approximately 2-3 cm. Proximal to this, the basilic into the axillary vein is widely patent with excellent flow through the subclavian vein and central veins. There is rapid flow centrally into the es[place]ña perior vena cava. 3. After angioplasty of the proximal basilic vein with a 7 x 20 cutting balloon in both areas of stenosis, there is definitely an improvement in flow and no extravasation. 4. After angioplasty the proximal basilic vein with an 8 x 100 Radford balloon, there is definitely large improvement in flow, an excellent thrill and the fistula, but there was a very small site of extravasation where the focal stenosis was in the basilic vein. A second angioplasty was done a very low pressure to see if this would resolve, but it did not. We then did a third angioplasty a very low pressure and held pressure for 5 minutes. Following this, there was resolution of the extravasation. However, on ultrasound, the patient does have a little hematoma in the area. We examine the whole area with ultrasound to make sure that there was no active flow or pseudoaneurysm, and we did not identify either. We then did one last angioplasty at low pressure, and following this there still was no extravasation and a good flow through the fistula. There was an excellent thrill over the bicep. REPORT OF OPERATION: The patient was brought angiographic suite in stable condition. Her left upper extremity was prepped and draped in a sterile fashion. A timeout was performed. Local anesthesia was administered to skin and subcutaneous tissue over the basilic vein. Ultrasound was used to examine the AV anastomosis and the basilic vein over the bicep and he was noted to be widely patent. We then accessed the vein under ultrasound guidance and past wire through this access and a 4 Slovak sheath was placed and flushed with saline. A fistulogram and central venogram were performed, please see interpretation above. Next, a Glidewire was advanced into the central system and the sheath was exchanged for 7 Slovak sheath. We change the wire for 018 Glidewire advantage and over this with access is 7 x 20 cutting balloon and there were multiple inflations across the proximal basilic vein in the areas of stenosis. Following this, venogram showed still some residual stenosis, although a marked improvement, with no extravasation. We then exchanged balloon for an 8 x 100 Radford balloon and a three-minute inflations was performed. Following this, we noted much improve flow through the fistula with an improved thrill, but a very small focus of extravasation where there had been a focal stenosis in the basilic vein. We then reinflated the balloon at a very low pressure proximal and distal to the area of her extravasation, and held gentle pressure over the arm. Following this, there is still extravasation after 2 minutes. We therefore reinflated the balloon, and held a little bit firmer pressure for 5 minutes. Following this, there was no extravasation. We reinflated the balloon at low pressure 1 more time to make sure that this was not going to bleed later today, and we still noted no extravasation. There was an excellent thrill and the fistula. We marked the fistula on the skin using ultrasound. A [id number] Prolene suture was placed at the sheath site in the sheath was removed. Suture was secured in good hemostasis was noted. Sterile dressings were applied and the patient was taken to recovery in stable condition. She tolerated the procedure and the sedation well. ESTIMATED BLOOD LOSS: Approximately 2 mL. COMPLICATIONS: None. PLAN: It is okay to use the AV fistula for dialysis. It is okay to resume home diet and medications. We appreciate the opportunity to participate in the care of this patient. JARED BYRNE MD Dec 02, 2020 16:03
[2020-12-02 16:10] VITALS: BP 146/66
== END ==
LOC: M IRPRO 12:49
PROVIDERS: ATTEND Surgery Vascular Surgery
DX: T82.590A Other mechanical complication of surgically created arteriovenous fistula, initial encounter (principal); N18.6 End stage renal disease; I12.0 Hypertensive chronic kidney disease with stage 5 chronic kidney disease or end stage renal disease; D63.1 Anemia in chronic kidney disease; E78.5 Hyperlipidemia, unspecified; X58.XXXA Exposure to other specified factors, initial encounter; Z79.899 Other long term (current) drug therapy; Z91.040 Latex allergy status; Z94.0 Kidney transplant status; Z99.2 Dependence on renal dialysis
CPT/HCPCS: 36902; 99152; 99153; C1725; C1729; C1769; C1894; J1644; J2250; J3010; Q9967

== ENCOUNTER → 2020-12-05 | Outpatient (REF) | payer MEDICARE, MEDICAID ==
[~2020-12-05] MED LIST changes: -ISOVUE-300 61% 50ML VIAL As Ordered ONE; -LIDOCAINE 1% MDV 20ML VIAL As Ordered ONE; -MIDAZOLAM INJ 2MG/2ML VIAL (J2250 PER 1MG) As Ordered ONE; -fentaNYL 100 MCG/2 ML INJECTION (J3010) As Ordered ONE
== END ==
PROVIDERS: ATTEND Internal Medicine
DX: Z20.822 Contact with and (suspected) exposure to COVID-19 (principal)

== ENCOUNTER → 2020-12-12 | Outpatient (REF) | payer MEDICARE, MEDICAID | PROVIDERS: ATTEND Internal Medicine | DX: Z20.822 Contact with and (suspected) exposure to COVID-19 (principal) ==

== ENCOUNTER → 2020-12-19 | Outpatient (REF) | payer MEDICARE, MEDICAID | PROVIDERS: ATTEND Internal Medicine | DX: Z20.822 Contact with and (suspected) exposure to COVID-19 (principal) ==

== ENCOUNTER → 2020-12-26 | Outpatient (REF) | payer MEDICARE, MEDICAID | PROVIDERS: ATTEND Internal Medicine | DX: Z20.822 Contact with and (suspected) exposure to COVID-19 (principal) ==

== ENCOUNTER → 2021-07-07 | Outpatient (CLI) | payer MEDICARE, MEDICAID ==
[~2021-07-07] MED LIST changes: +ACETAMINOPHEN 325 MG TAB As Ordered ONE; +ACETAMINOPHEN TAB 650MG DOSE (2X325MG) PO ONE; +CYCL25CA23 PO; -CYCL25CA6 PO; +ERGO80006 PO; +ISOVUE-300 61% 50ML VIAL As Ordered ONE; +LIDOCAINE 1% MDV 20ML VIAL As Ordered ONE; +LOSA100T50 PO; +MIDAZOLAM INJ 2MG/2ML VIAL (J2250 PER 1MG) As Ordered ONE; +RENATAB5 PO; +SEVE800T3 PO; +TRIA1CR80 TOP; +fentaNYL 100 MCG/2 ML INJECTION (J3010) As Ordered ONE
[2021-07-07 16:30] VITALS: BP 197/87
--- NOTE | 2021-07-24 12:49 | ROOPDOC ---
[facility] Report Of Operation Report of Operation DATE OF PROCEDURE: 07/07/21 PREPROCEDURE DIAGNOSES: Left brachiobasilic AV Fistula Stenosis POSTPROCEDURE DIAGNOSES: Left brachiobasilic AV Fistula Stenosis PROCEDURE PERFORMED: 1. Left arm Basilic vein Angioplasty 2. Ultrasound guided per cutaneous entry SURGEON: Yenni White MD ANESTHESIA: MAC and local ESTIMATED BLOOD LOSS: Approximately 3 mL COMPLICATIONS: None DESCRIPTION OF PROCEDURE: The patient was brought to the IR and placed on the IR table in the supine position. After adequate anesthesia was administered, the patients chest and left arm were prepped and draped in standard surgical fashion. Under ultrasound guidance, percutaneous entry into the AV Fistula was made with a micropuncture needle proximal to the anastomosis. Over guidewire exchange the microsheath was introduced and digital subtraction angiography was performed and revealed a patent brachiobasilic AV fistula and anastomosis with a severe stenosis in the mid basilic vein segment and good outflow into the central venous system. Over guidewire exchange, the microsheath was exchanged for a 5 Fr sheath and a 0.035 Glidewire was placed in the SVC. Angioplasty across the stenotic segment was done with serial dilatations with a 6mm x 40mm followed by 8mm x 100mm and then 9mm x 80mm balloons. Post-insufflation angiography revealed improved caliber and flow into the central system. The wire and sheath were removed and the puncture site was closed with a Prolene suture. A sterile dressings was then placed. The patient had a palpable radial pulse and a good thrill in the AV fistula. YENNI WHITE MD Jul 24, 2021 12:49
== END ==
LOC: M IRPRO 12:49
PROVIDERS: ATTEND Surgery Vascular Surgery
DX: T82.590A Other mechanical complication of surgically created arteriovenous fistula, initial encounter (principal); N18.6 End stage renal disease; I12.0 Hypertensive chronic kidney disease with stage 5 chronic kidney disease or end stage renal disease; Z79.899 Other long term (current) drug therapy
CPT/HCPCS: 36902; 99152; 99153; C1725; C1769; C1894; J1644; J2250; J3010; Q9967

== ENCOUNTER → 2022-04-25 | Outpatient (REF) | payer MEDICARE, MEDICAID ==
[~2022-04-25] MED LIST changes: -ACETAMINOPHEN 325 MG TAB As Ordered ONE; -ACETAMINOPHEN TAB 650MG DOSE (2X325MG) PO ONE; -ISOVUE-300 61% 50ML VIAL As Ordered ONE; -LIDOCAINE 1% MDV 20ML VIAL As Ordered ONE; +LOSA100T45 PO; -LOSA100T50 PO; -MIDAZOLAM INJ 2MG/2ML VIAL (J2250 PER 1MG) As Ordered ONE; -fentaNYL 100 MCG/2 ML INJECTION (J3010) As Ordered ONE
== END ==
PROVIDERS: ATTEND Internal Medicine Nephrology
DX: Z20.822 Contact with and (suspected) exposure to COVID-19 (principal)

== ENCOUNTER → 2022-05-08 | Outpatient (REF) | payer MEDICARE, MEDICAID | PROVIDERS: ATTEND Internal Medicine Nephrology | DX: Z20.822 Contact with and (suspected) exposure to COVID-19 (principal) ==

== ENCOUNTER → 2022-06-01 | Outpatient (CLI) | payer MEDICARE, MEDICAID | LOC: M RAD 09:28 | PROVIDERS: ATTEND Internal Medicine Nephrology | DX: I50.9 Heart failure, unspecified (principal); J91.8 Pleural effusion in other conditions classified elsewhere; J98.11 Atelectasis ==

== ENCOUNTER → 2022-07-06 | Outpatient (CLI) | payer MEDICARE, MEDICAID | LOC: M RAD 10:17 | PROVIDERS: ATTEND Internal Medicine Nephrology | DX: I51.7 Cardiomegaly (principal); R05.3 Chronic cough ==

== ENCOUNTER → 2022-11-14 | Outpatient (CLI) | payer MEDICARE, MEDICAID | LOC: M WHC 09:37 | PROVIDERS: ATTEND Family Medicine | DX: Z12.31 Encounter for screening mammogram for malignant neoplasm of breast (principal); Z78.0 Asymptomatic menopausal state; Z13.820 Encounter for screening for osteoporosis ==

== ENCOUNTER → 2023-10-14 | Outpatient (REF) | payer MEDICARE, MEDICAID ==
[~2023-10-14] MED LIST changes: -LOSA100T45 PO; +LOSA100T46 PO
[2023-10-14 11:54] LABS: BASO # 0.1 10^3/uL (0.0-0.2); BASO % 0.8 % (0.0-1.0); EOS # 0.6 10^3/uL (0.0-0.5); HEMATOCRIT 35.7 % (36.0-47.0); HEMOGLOBIN 11.3 g/dl (12.0-15.5); LYMPH # 2.9 10^3/uL (1.5-5.0); LYMPH % 32.5 % (24.0-44.0); MEAN CORPUSCULAR HGB CONC 31.7 g/dl (32.0-36.5); MEAN CORPUSCULAR VOLUME 101.1 fl (80.0-96.0); MONO # 0.6 10^3/uL (0.0-0.8); MONO % 6.8 % (2.0-8.0); NEUTROPHILS # 4.6 10^3/uL (1.5-8.5); NEUTROPHILS % 52.8 % (36.0-66.0); PLATELET COUNT, AUTOMATED 214 10^3/uL (150-450); RED BLOOD COUNT 3.53 10^6/uL (4.00-5.40); WHITE BLOOD COUNT 8.8 10^3/uL (4.0-10.0)
[2023-10-14 12:15] LABS: TOTAL 25(OH) VITAMIN D 50.1 NG/ML (20.0-100.0)
[2023-10-14 12:35] LABS: ALBUMIN 3.5 G/DL (3.2-5.2); BILIRUBIN,TOTAL 0.2 MG/DL (0.3-1.2); CALCIUM LEVEL 9.5 MG/DL (8.3-10.6); CREATININE FOR GFR 10.7 MG/DL (0.55-1.30); FERRITIN 1653.8 NG/ML (7.3-270.7); GLOMERULAR FILTRATION RATE 3.8 (>45); POTASSIUM SERUM 6.4 MMOL/L (3.5-5.1); PTH INTACT 857.5 PG/ML (18.5-88.0); TOTAL PROTEIN 7.7 G/DL (5.7-8.2)
== END ==
PROVIDERS: ATTEND Family Medicine
DX: N18.6 End stage renal disease (principal); I12.0 Hypertensive chronic kidney disease with stage 5 chronic kidney disease or end stage renal disease; D63.1 Anemia in chronic kidney disease

== ENCOUNTER → 2023-12-02 | Outpatient (CLI) | payer MEDICARE, MEDICAID | LOC: M WHC 11:41 | PROVIDERS: ATTEND Family Medicine | DX: Z12.31 Encounter for screening mammogram for malignant neoplasm of breast (principal) ==